=== PATIENT | male | born 1965 | race Caucasian/White ===

== ENCOUNTER 2017-01-13 23:57 | Emergency (ER) | payer OTHER ==
[2017-01-14] MEDS ORDERED: Rocephin 1000 MG INJ IM ONE (00:30)
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
[2017-01-14] MEDS ORDERED: Rocephin 1000 MG INJ ONE (00:40)
[2017-01-14] MEDS ORDERED: NORCO 5/325 MG PO ONE (02:07)
[2017-01-14] MEDS ORDERED: NORCO 5/325 MG ONE (02:11)
[2017-01-14 02:19] VITALS: BP 168/106; PULSE 96; O2SAT 100
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
== END 2017-01-14 02:19 | disposition home or self-care (01) ==
LOC: ED 23:57
DX: S00.83XA Contusion of other part of head, initial encounter (principal); K04.7 Periapical abscess without sinus; W50.0XXA Accidental hit or strike by another person, initial encounter
CPT/HCPCS: 70450; 70486; 72125; 96372; 99284; J0696; A9270-GY

== ENCOUNTER 2018-06-09 15:42 | Emergency (ER) | payer OTHER | END 2018-06-09 17:08 | disposition left against medical advice (07) | LOC: ED 15:42 | DX: Z53.9 Procedure and treatment not carried out, unspecified reason (principal) | CPT/HCPCS: 99281 ==

== ENCOUNTER 2019-11-12 16:23 | Emergency (ER) | payer OTHER ==
--- NOTE | 2019-11-12 16:28 | ERPHSYRPT ---
- History of Present Illness Time Seen by Provider: 11/12/19 16:27 Source: patient, family Exam Limitations: no limitations Physician History: This is a 53-year-old white male who is [facility] and presents with headache and abdominal pain. Patient has a history of hypertension and irritable bowel syndrome. Patient states that he uses methamphetamines and marijuana. The last time he used methamphetamines was 2 days ago. He also admits to using "fake" marijuana. patient denies any other illicit drug use. Patient has not taking any of his medications in the past 4 years. Patient was seen by EMS earlier today and signed a signature of release. He did not want to be brought to the emergency department at that time. His family talked him into coming into the emergency department to be evaluated. Patient denies any head injury. Patient denies vomiting or diarrhea. Timing/Duration: today Associated Symptoms: abdominal pain, headaches Allergies/Adverse Reactions: No Known Drug Allergies Allergy (Verified 11/12/19 16:30) Home Medications: No Home Meds [No Home Meds] 1 [facility] 09/05/14 [History] Hx Tetanus, Diphtheria Vaccination/Date Given: Yes (2006) Travel Risk - International Travel Have you traveled outside of the country in past 3 weeks: No - Coronavirus Screening Are you exhibiting any of the following symptoms?: No Close contact with a COVID-19 positive Pt in past 14-21 Days: No - Review of Systems Constitutional: No Symptoms Eyes: No Symptoms Ears, Nose, & Throat: No Symptoms Respiratory: No Symptoms Cardiac: No Symptoms Abdominal/Gastrointestinal: Abdominal Pain (Generalized), Nausea, No Vomiting, No Diarrhea Genitourinary Symptoms: No Symptoms Musculoskeletal: No Symptoms Skin: No Symptoms Neurological: Headache Psychological: No Symptoms Endocrine: No Symptoms Hematologic/Lymphatic: No Symptoms Immunological/Allergic: No Symptoms All Other Systems: Reviewed and Negative - Past Medical History Pertinent Past Medical History: Yes Neurological History: No Pertinent History ENT History: No Pertinent History Cardiac History: Hypertension, Other Respiratory History: No Pertinent History Endocrine Medical History: No Pertinent History Musculoskeletal History: No Pertinent History GI Medical History: Irritable Bowel History: No Pertinent History Psycho-Social History: No Pertinent History Male Reproductive Disorders: No Pertinent History Other Medical History: MVP - Past Surgical History Past Surgical History: Yes Neuro Surgical History: No Pertinent History Cardiac: No Pertinent History Respiratory: No Pertinent History Gastrointestinal: No Pertinent History Musculoskeletal: Orthopedic Surgery Male Surgical History: No Pertinent History Other Surgical History: LEFT WRIST SURGERY - Social History Smoking Status: Current every day smoker Exposure to second hand smoke: No Drug Use: none Patient Lives Alone: No - Nursing Vital Signs Nursing Vital Signs: Initial Vital Signs Temperature 98.3 F 11/12/19 16:32 Pulse Rate 96 H 11/12/19 16:32 Respiratory Rate 14 11/12/19 16:32 Blood Pressure 216/137 11/12/19 16:32 O2 Sat by Pulse Oximetry 100 11/12/19 16:32 Pain Scale Pain Intensity 0 - Physical Exam General Appearance: mild distress, alert, anxiety Eye Exam: PERRL/EOMI, eyes nml inspection Ears, Nose, Throat Exam: normal ENT inspection, moist mucous membranes Neck Exam: normal inspection, non-tender, supple, full range of motion Respiratory Exam: normal breath sounds, lungs clear, airway intact, No chest tenderness, No respiratory distress Cardiovascular Exam: regular rate/rhythm, normal heart sounds, normal peripheral pulses Extremity Exam: normal inspection, normal range of motion, pelvis stable Neurologic Exam: alert, oriented x 3, cooperative, systems lead II-XII nml as tested, normal mood/affect, nml cerebellar function, nml station & gait, sensation nml Skin Exam: normal color, warm, dry Lymphatic Exam: No adenopathy SpO2 Interpretation: normal - Course Nursing assessment & vital signs reviewed: Yes EKG Interpreted by Me: RATE (98), Sinus Rhythm, NORMAL AXIS, NORMAL INTERVALS, NORMAL QRS, Other (No acute ischemic changes. No comparison EKG) Ordered Tests: Active Orders 24 hr Category Date Time Status Cane Flume Watcher STAT Care 11/12/19 16:41 Active EKG-ER Only STAT Care 11/12/19 16:41 Active IV Insertion STAT Care 11/12/19 16:41 Active ABDOMEN AND PELVIS W/0 CONTRAS [CT] Stat Exams 11/12/19 17:01 Taken HEAD WITHOUT CONTRAST [CT] Stat Exams 11/12/19 17:09 Taken AMYLASE Stat Lab 11/12/19 Completed CBC W DIFF Stat Lab 11/12/19 Completed CK-Creatinine Phosphokinase Stat Lab 11/12/19 Completed CMP Stat Lab 11/12/19 Completed D-DIMER QUANTITATIVE Stat Lab 11/12/19 Completed LIPASE Stat Lab 11/12/19 Completed Lactic Acid Stat Lab 11/12/19 16:59 Completed TROPONIN Q3H Lab 11/12/19 Completed TROPONIN Q3H Lab 11/12/19 23:00 Ordered TROPONIN Q3H Lab 11/13/19 02:00 Ordered TROPONIN Q3H Lab 11/13/19 05:00 Ordered UA W/RFX UR CULTURE Stat Lab 11/12/19 18:30 Completed Urine Triage Profile Stat Lab 11/12/19 18:30 Completed Medication Summary Discontinued Medications Generic Name Dose Route Start Last Admin Trade Name Toni PRN Reason Stop Dose Admin Enalaprilat 1.25 mg 11/12/19 20:01 11/12/19 20:03 Vasotec I.V. 2.5 Mg IV 11/12/19 20:02 1.25 mg STAT ONE Administration Enalaprilat Confirm 11/12/19 20:02 Vasotec I.V. 2.5 Mg Administered 11/12/19 20:03 Dose 2.5 mg IV .STK-MED ONE Hydralazine HCl 10 mg 11/12/19 17:05 11/12/19 17:10 Apresoline 20 Mg/Ml Inj IV 11/12/19 17:06 10 mg STAT ONE Administration Hydralazine HCl Confirm 11/12/19 17:08 Apresoline 20 Mg/Ml Inj Administered 11/12/19 17:09 Dose 20 mg .ROUTE .STK-MED ONE Hydralazine HCl 10 mg 11/12/19 19:39 11/12/19 19:42 Apresoline 20 Mg/Ml Inj IV 11/12/19 19:40 10 mg STAT ONE Administration Hydralazine HCl Confirm 11/12/19 19:41 Apresoline 20 Mg/Ml Inj Administered 11/12/19 19:42 Dose 20 mg .ROUTE .STK-MED ONE Lorazepam 1 mg 11/12/19 17:04 11/12/19 17:10 Ativan 2 Mg/1 Ml Vial IV 11/12/19 17:05 1 mg STAT ONE Administration Lorazepam Confirm 11/12/19 17:08 Ativan 2 Mg/1 Ml Vial Administered 11/12/19 17:09 Dose 2 mg .ROUTE .STK-MED ONE Lab/Rad Data: Laboratory Result Diagrams 11/12/19 Unknown 11/12/19 Unknown Laboratory Results 11/12/19 11/12/19 11/12/19 Range/Units Unknown Unknown Unknown WBC (4.0-10.5) K/mm3 RBC (4.1-5.6) M/mm3 Hgb (12.5-18.0) gm/dl Hct (42-50) % MCV (78-100) fl MCH (26-32) pg MCHC (32-36) g/dl RDW (11.5-14.0) % Plt Count (150-450) K/mm3 MPV (7.5-11.0) fl Gran % (36.0-66.0) % Eos # (Auto) (0-0.5) Absolute Lymphs (auto) (1.0-4.6) Absolute Monos (auto) (0.0-1.3) Lymphocytes % (24.0-44.0) % Monocytes % (0.0-12.0) % Eosinophils % (0.00-5.0) % Basophils % (0.0-0.4) % Absolute Granulocytes (1.4-6.9) Basophils # (0-0.4) D-Dimer 245 (215-500) ng/mL Sodium 137 (137-145) mmol/L Potassium 3.8 (3.5-5.1) mmol/L Chloride 104 (98-107) mmol/L Carbon Dioxide 25 (22-30) mmol/L Anion Gap 12.8 (5-15) MEQ/L BUN 15 (9-20) mg/dL Creatinine 1.65 H (0.66-1.25) mg/dL Estimated GFR 46.6 ML/MIN Glucose 116 H (74-106) mg/dL Lactic Acid (0.4-2.0) Calcium 9.5 (8.4-10.2) mg/dL Total Bilirubin 0.50 (0.2-1.3) mg/dL AST 22 (17-59) U/L ALT 18 (0-50) U/L Alkaline Phosphatase 127 H (38-126) U/L Creatine Kinase 66 (55-170) U/L Troponin I < 0.012 (0.000-0.034) ng/mL Serum Total Protein 7.7 (6.3-8.2) g/dL Albumin 4.6 (3.5-5.0) g/dL Amylase 122 H (30-110) U/L Lipase 146 (23-300) U/L Urine Color (YELLOW) Urine Appearance (CLEAR) Urine pH (5-6) Ur Specific [place] (1.005-1.025) Urine Protein (Negative) Urine Ketones (NEGATIVE) Urine Blood (0-5) Gabriele/ul Urine Nitrite (NEGATIVE) Urine Bilirubin (NEGATIVE) Urine Urobilinogen (0-1) mg/dL Ur Leukocyte Esterase (NEGATIVE) Urine WBC (Auto) (0-5) /HPF Urine RBC (Auto) (0-2) /HPF U Epithel Cells (Auto) (FEW) /HPF Urine Bacteria (Auto) (NEGATIVE) /HPF Urine Culture Reflexed (NO) Urine Glucose (NEGATIVE) mg/dL Urine Opiates Level (NEGATIVE) Ur Methadone (NEGATIVE) Urine Barbiturates (NEGATIVE) Ur Phencyclidine (PCP) (NEGATIVE) Urine Amphetamine (NEGATIVE) U Benzodiazepine Level (NEGATIVE) Urine Cocaine (NEGATIVE) Urine Marijuana (THC) (NEGATIVE) 11/12/19 11/12/19 11/12/19 Range/Units Unknown 18:30 18:30 WBC 9.6 (4.0-10.5) K/mm3 RBC 5.36 (4.1-5.6) M/mm3 Hgb 15.9 (12.5-18.0) gm/dl Hct 47.3 (42-50) % MCV 88.2 (78-100) fl MCH 29.7 (26-32) pg MCHC 33.6 (32-36) g/dl RDW 13.7 (11.5-14.0) % Plt Count 320 (150-450) K/mm3 MPV 9.5 (7.5-11.0) fl Gran % 60.6 (36.0-66.0) % Eos # (Auto) 0.15 (0-0.5) Absolute Lymphs (auto) 2.86 (1.0-4.6) Absolute Monos (auto) 0.71 (0.0-1.3) Lymphocytes % 29.9 (24.0-44.0) % Monocytes % 7.4 (0.0-12.0) % Eosinophils % 1.6 (0.00-5.0) % Basophils % 0.5 (0.0-0.4) % Absolute Granulocytes 5.80 (1.4-6.9) Basophils # 0.05 (0-0.4) D-Dimer (215-500) ng/mL Sodium (137-145) mmol/L Potassium (3.5-5.1) mmol/L Chloride (98-107) mmol/L Carbon Dioxide (22-30) mmol/L Anion Gap (5-15) MEQ/L BUN (9-20) mg/dL Creatinine (0.66-1.25) mg/dL Estimated GFR ML/MIN Glucose (74-106) mg/dL Lactic Acid (0.4-2.0) Calcium (8.4-10.2) mg/dL Total Bilirubin (0.2-1.3) mg/dL AST (17-59) U/L ALT (0-50) U/L Alkaline Phosphatase (38-126) U/L Creatine Kinase (55-170) U/L Troponin I (0.000-0.034) ng/mL Serum Total Protein (6.3-8.2) g/dL Albumin (3.5-5.0) g/dL Amylase (30-110) U/L Lipase (23-300) U/L Urine Color STRAW (YELLOW) Urine Appearance CLEAR (CLEAR) Urine pH 6.0 (5-6) Ur Specific [place] 1.005 (1.005-1.025) Urine Protein NEGATIVE (Negative) Urine Ketones NEGATIVE (NEGATIVE) Urine Blood NEGATIVE (0-5) Gabriele/ul Urine Nitrite NEGATIVE (NEGATIVE) Urine Bilirubin NEGATIVE (NEGATIVE) Urine Urobilinogen NEGATIVE (0-1) mg/dL Ur Leukocyte Esterase NEGATIVE (NEGATIVE) Urine WBC (Auto) NONE (0-5) /HPF Urine RBC (Auto) NONE (0-2) /HPF U Epithel Cells (Auto) NONE (FEW) /HPF Urine Bacteria (Auto) NONE (NEGATIVE) /HPF Urine Culture Reflexed NO (NO) Urine Glucose NEGATIVE (NEGATIVE) mg/dL Urine Opiates Level NEGATIVE (NEGATIVE) Ur Methadone NEGATIVE (NEGATIVE) Urine Barbiturates NEGATIVE (NEGATIVE) Ur Phencyclidine (PCP) NEGATIVE (NEGATIVE) Urine Amphetamine POSITIVE (NEGATIVE) U Benzodiazepine Level NEGATIVE (NEGATIVE) Urine Cocaine NEGATIVE (NEGATIVE) Urine Marijuana (THC) POSITIVE (NEGATIVE) 11/12/19 Range/Units 16:59 WBC (4.0-10.5) K/mm3 RBC (4.1-5.6) M/mm3 Hgb (12.5-18.0) gm/dl Hct (42-50) % MCV (78-100) fl MCH (26-32) pg MCHC (32-36) g/dl RDW (11.5-14.0) % Plt Count (150-450) K/mm3 MPV (7.5-11.0) fl Gran % (36.0-66.0) % Eos # (Auto) (0-0.5) Absolute Lymphs (auto) (1.0-4.6) Absolute Monos (auto) (0.0-1.3) Lymphocytes % (24.0-44.0) % Monocytes % (0.0-12.0) % Eosinophils % (0.00-5.0) % Basophils % (0.0-0.4) % Absolute Granulocytes (1.4-6.9) Basophils # (0-0.4) D-Dimer (215-500) ng/mL Sodium (137-145) mmol/L Potassium (3.5-5.1) mmol/L Chloride (98-107) mmol/L Carbon Dioxide (22-30) mmol/L Anion Gap (5-15) MEQ/L BUN (9-20) mg/dL Creatinine (0.66-1.25) mg/dL Estimated GFR ML/MIN Glucose (74-106) mg/dL Lactic Acid 1.4 (0.4-2.0) Calcium (8.4-10.2) mg/dL Total Bilirubin (0.2-1.3) mg/dL AST (17-59) U/L ALT (0-50) U/L Alkaline Phosphatase (38-126) U/L Creatine Kinase (55-170) U/L Troponin I (0.000-0.034) ng/mL Serum Total Protein (6.3-8.2) g/dL Albumin (3.5-5.0) g/dL Amylase (30-110) U/L Lipase (23-300) U/L Urine Color (YELLOW) Urine Appearance (CLEAR) Urine pH (5-6) Ur Specific [place] (1.005-1.025) Urine Protein (Negative) Urine Ketones (NEGATIVE) Urine Blood (0-5) Gabriele/ul Urine Nitrite (NEGATIVE) Urine Bilirubin (NEGATIVE) Urine Urobilinogen (0-1) mg/dL Ur Leukocyte Esterase (NEGATIVE) Urine WBC (Auto) (0-5) /HPF Urine RBC (Auto) (0-2) /HPF U Epithel Cells (Auto) (FEW) /HPF Urine Bacteria (Auto) (NEGATIVE) /HPF Urine Culture Reflexed (NO) Urine Glucose (NEGATIVE) mg/dL Urine Opiates Level (NEGATIVE) Ur Methadone (NEGATIVE) Urine Barbiturates (NEGATIVE) Ur Phencyclidine (PCP) (NEGATIVE) Urine Amphetamine (NEGATIVE) U Benzodiazepine Level (NEGATIVE) Urine Cocaine (NEGATIVE) Urine Marijuana (THC) (NEGATIVE) - Progress Progress: improved, pain not gone completely, re-examined Progress Note: 11/12/19 19:38 CAT scan of the head reveals a normal head CT without any acute intracranial abnormalities. CAT scan of the abdomen pelvis reveals no acute intra-abdominal findings. There is an intermediate 9 mm right lower lobe lung nodule. The findings were discussed with the patient. He was instructed to follow-up with his primary care physician for further evaluation management of the lung nodule. 11/12/19 20:15 Medical decision making: This patient needs admission for hypertensive urgency. Patient also has methamphetamine abuse. Patient does not want to stay. He is going to sign an AMA form. I discussed with him in detail, as well as his daughter, the possibility of his symptoms worsening including causing a stroke or even . Patient states that he does not want to stay. I will discharge him to home with antihypertensive medication. Counseled pt/family regarding: lab results, diagnosis, need for follow-up, rad results - Departure Departure Disposition: AMA Clinical Impression: Hypertensive crisis Condition: Serious Critical Care Time: Yes Critical Care Time(excluding separately billable procedures): Critical 30-74 mins Referrals: DOCTOR,NO FAMILY [Primary Care Provider] - Additional Instructions: Return to the emergency department for worsening symptoms. Follow-up with your primary care for persistent symptoms. Take your medication as prescribed. Prescriptions: Hydrochlorothiazide 25 mg [hydroDIURIL 25 MG] 25 mg PO DAILY #10 tablet
[2019-11-12] MEDS ORDERED: APRESOLINE 20 MG/ML INJ ONE ×2 (17:08→19:41)
[2019-11-12] MEDS ORDERED: Ativan 2 MG/1 ML VIAL ONE (17:08)
[2019-11-12] MEDS: Ativan 2 MG/1 ML VIAL IV ONE (17:10)
[2019-11-12] MEDS: APRESOLINE 20 MG/ML INJ IV ONE ×2 (17:10→19:42)
[2019-11-12 17:14] LABS: BASOPHIL % 0.5 % (0.0-0.4); Basophil (Absolute #) 0.05 (0-0.4); Eosinophil % 1.6 % (0.00-5.0); Eosinophil (Absolute #) 0.15 (0-0.5); Hematocrit 47.3 % (42-50); Hemoglobin 15.9 gm/dl (12.5-18.0); Lymphocyte (Absolute #) 2.86 (1.0-4.6); Lymphocytes % 29.9 % (24.0-44.0); Mean Cell Volume 88.2 fl (78-100); Mean Corpuscular Hemoglobin 29.7 pg (26-32); Mean Corpuscular Hgb Concent. 33.6 g/dl (32-36); Mean Platelet Volume 9.5 fl (7.5-11.0); Monocyte (Absolute #) 0.71 (0.0-1.3); Monocytes % 7.4 % (0.0-12.0); Neutrophil % 60.6 % (36.0-66.0); Platelet Count 320 K/mm3 (150-450); Red Blood Count 5.36 M/mm3 (4.1-5.6); Red Cell Distribution Width 13.7 % (11.5-14.0); White Blood Count 9.6 K/mm3 (4.0-10.5)
[2019-11-12 17:29] LABS: ALBUMIN 4.6 g/dL (3.5-5.0); ANION GAP 12.8 MEQ/L (5-15); BILIRUBIN,TOTAL 0.5 mg/dL (0.2-1.3); Calcium 9.5 mg/dL (8.4-10.2); Creatinine 1 1.65 mg/dL (0.66-1.25); Potassium 3.8 mmol/L (3.5-5.1); Total Protein 7.7 g/dL (6.3-8.2)
[2019-11-12 18:52] LABS: Appearance CLEAR (CLEAR); Bilirubin NEGATIVE (NEGATIVE); Blood NEGATIVE Ery/ul (0-5); Glucose NEGATIVE (NEGATIVE); Ketones NEGATIVE (NEGATIVE); Leukocyte Esterase NEGATIVE (NEGATIVE); Nitrite NEGATIVE (NEGATIVE); Protein,Urine Dip NEGATIVE (Negative); Specific Gravity 1.005 (1.005-1.025); Urobilinogen NEGATIVE mg/dL (0-1)
[2019-11-12 19:15] VITALS: O2SAT 99
[2019-11-12 19:17] LABS: Barbiturate,Urine NEGATIVE (NEGATIVE); Benzodiazepine,Urine NEGATIVE (NEGATIVE); Cocaine,Urine NEGATIVE (NEGATIVE); Methadone,Urine NEGATIVE (NEGATIVE); Opiate,Urine NEGATIVE (NEGATIVE); PCP,Urine NEGATIVE (NEGATIVE); THC,Urine POSITIVE (NEGATIVE)
[2019-11-12 19:48] LABS: Amphetamine,Urine POSITIVE (NEGATIVE)
[2019-11-12] MEDS ORDERED: VASOTEC I.V. 2.5 MG IV ONE (20:02)
[2019-11-12 20:03] VITALS: BP 182/119; PULSE 92
[2019-11-12] MEDS: VASOTEC I.V. 2.5 MG IV ONE (20:03)
--- NOTE | 2019-11-13 08:41 | XRAY ---
Indication: Headache and dizziness. Multiple contiguous axial images obtained through the head without contrast. Comparison: January 14, 2017. Again normal appearing brain parenchyma, ventricles, and bony calvarium. Visualized paranasal sinuses and mastoid air cells are clear. Impression: Continued normal CT head without contrast exam.
--- NOTE | 2019-11-13 08:45 | XRAY ---
Indication: Abdomen pain. Multiple contiguous axial images obtained through the abdomen and pelvis without contrast as ordered. Comparison: None Lung bases demonstrates mild bibasilar dependent atelectasis and lingula subsegmental atelectasis/scarring. Right middle lobe demonstrates a indeterminant 9 mm noncalcified nodule. No infiltrate or effusion. Heart is not enlarged. Noncontrasted stomach and bowel loops appear nonobstructed. Descending duodenum demonstrates 2 cm diverticulum. Normal appendix. No free fluid/air. Remaining liver, gallbladder, pancreas, spleen, adrenal glands, kidneys, ureters, and bladder appear unremarkable for noncontrast exam. Minimal aortoiliac calcifications without AAA. Osseous structures demonstrates mild/moderate degenerative changes throughout the lumbar spine. Bilateral L4 spondylolysis with 12 mm spondylolisthesis. Impression: 1. Indeterminant 9 mm right middle lobe noncalcified nodule. Finding is new with respect to CT chest January 08, 2011. CT chest may yield further information. 2. Incidental duodenal diverticulum and L4 spondylolysis with grade [address] abdomen/pelvis without contrast exam is negative.
== END 2019-11-12 20:24 | disposition left against medical advice (07) ==
LOC: ED 16:23
DX: I16.9 Hypertensive crisis, unspecified (principal)
CPT/HCPCS: 36000; 36415; 70450; 74176; 80053; 80307; 81001; 82150; 82550; 83605; 83690; 84484; 85025; 85379; 93005; 93041; 96374; 96375; 96376; 99284; 99291; J0360; J2060

== ENCOUNTER 2021-03-18 19:14 | Emergency (ER) | payer SELFPAY | END 2021-03-18 19:15 | disposition left against medical advice (07) | LOC: ED 19:14 | DX: Z53.21 Procedure and treatment not carried out due to patient leaving prior to being seen by health care provider (principal) | CPT/HCPCS: 99282 ==

== ENCOUNTER 2022-08-09 20:57 | Emergency (ER) | payer OTHER ==
--- NOTE | 2022-08-09 21:05 | ERPHSYRPT ---
- History of Present Illness Time Seen by Provider: 08/09/22 21:05 Historian: patient Exam Limitations: no limitations Physician History: This is a 56-year-old white male patient who is also a [facility] has a history of hypertension on amlodipine and irritable bowel syndrome. Patient does smoke cigarettes and occasionally does smoke marijuana and presents with left anterior chest pain that began last evening and worsened today. It had been intermittent and today was more constant sharp pain that radiates to his left shoulder. He denies shortness of breath. He has not had a cough. He denies fevers. He has no abdominal pain. Patient has never seen a needle grinder. His systolic blood pressure on arrival to the emergency department was approximately 183 mmHg. Timing/Duration: yesterday, intermittent, worse Quality: sharpness Location: other (Left anterior chest) Chest Pain Radiation: arm Severity of Pain-Max: mild (Moderate) Severity of Pain-Current: mild (To moderate) Modifying Factors: Improves With: nothing Associated Symptoms: No shortness of breath, No cough Prior Chest Pain/Cardiac Workup: no prior chest pain, no prior cardiac workup Nitro Today/Relief: no nitro taken today Aspirin Treatment Today: provided at home (Patient states that he took 2 full Excedrin at home earlier today.) Allergies/Adverse Reactions: No Known Drug Allergies Allergy (Verified 08/09/22 21:21) Home Medications: Amlodipine Besylate [Norvasc] 10 mg PO DAILY 11/25/20 [History] Hx Tetanus, Diphtheria Vaccination/Date Given: Yes (2006) Hx Influenza Vaccination/Date Given: No Hx Pneumococcal Vaccination/Date Given: No Travel Risk - International Travel Have you traveled outside of the country in past 3 weeks: No - Coronavirus Screening Are you exhibiting any of the following symptoms?: No Close contact with a COVID-19 positive Pt in past 14-21 Days: No - Review of Systems Constitutional: No Symptoms Eyes: No Symptoms Ears, Nose, & Throat: No Symptoms Respiratory: No Symptoms Cardiac: Chest Pain Abdominal/Gastrointestinal: No Symptoms Genitourinary Symptoms: No Symptoms Musculoskeletal: No Symptoms Skin: No Symptoms Neurological: No Symptoms Psychological: No Symptoms Endocrine: No Symptoms - Past Medical History Pertinent Past Medical History: Yes Neurological History: No Pertinent History ENT History: No Pertinent History Cardiac History: Hypertension, Other Respiratory History: No Pertinent History Endocrine Medical History: No Pertinent History Musculoskeletal History: No Pertinent History GI Medical History: Irritable Bowel History: No Pertinent History Psycho-Social History: No Pertinent History Male Reproductive Disorders: No Pertinent History Other Medical History: MVP - Past Surgical History Past Surgical History: Yes Neuro Surgical History: No Pertinent History Cardiac: No Pertinent History Respiratory: No Pertinent History Gastrointestinal: No Pertinent History Genitourinary: No Pertinent History Musculoskeletal: Orthopedic Surgery Male Surgical History: No Pertinent History Other Surgical History: LEFT WRIST SURGERY - Social History Smoking Status: Current every day smoker How long have you smoked: 30 years Exposure to second hand smoke: Yes Drug Use: none Patient Lives Alone: No - Nursing Vital Signs Nursing Vital Signs: Initial Vital Signs Temperature 97.4 F 08/09/22 20:58 Pulse Rate 99 H 08/09/22 20:58 Respiratory Rate 16 08/09/22 20:58 Blood Pressure 176/129 08/09/22 20:58 O2 Sat by Pulse Oximetry 100 08/09/22 20:58 Pain Scale Pain Intensity 4 - Physical Exam General Appearance: no apparent distress, alert Eye Exam: PERRL/EOMI, eyes nml inspection Ears, Nose, Throat Exam: normal ENT inspection, moist mucous membranes Neck Exam: normal inspection, non-tender, supple, full range of motion Respiratory Exam: normal breath sounds, chest tenderness (Left chest), lungs clear, airway intact, No respiratory distress Cardiovascular Exam: regular rate/rhythm, normal heart sounds, normal peripheral pulses Gastrointestinal/Abdomen Exam: soft, normal bowel sounds, No tenderness Rectal Exam: not done Back Exam: normal inspection, normal range of motion, No CVA tenderness, No vertebral tenderness Extremity Exam: normal inspection, normal range of motion, pelvis stable Neurologic Exam: alert, oriented x 3, cooperative, fuel cell repairer II-XII nml as tested, normal mood/affect, nml cerebellar function, nml station & gait, sensation nml Skin Exam: normal color, warm, dry Lymphatic Exam: No adenopathy SpO2 Interpretation: normal O2 Delivery: Room Air - Course Nursing assessment & vital signs reviewed: Yes EKG Interpreted by Me: RATE (101), Sinus Tach, LAFB, prolonged QT interval, N ORMAL QRS, Other (No acute ischemic changes on today's twelve-lead EKG) Ordered Tests: Active Orders 24 hr Category Date Time Status Community Leader STAT Care 08/09/22 21:37 Active EKG-ER Only STAT Care 08/09/22 21:36 Active IV Insertion STAT Care 08/09/22 21:36 Active Pulse Oximetry (ED) STAT Care 08/09/22 21:36 Active CHEST 1 VIEW (PORTABLE) Stat Exams 08/09/22 21:36 Taken CBC Q48H Lab 08/10/22 06:00 Ordered CBC Q48H Lab 08/12/22 06:00 Ordered CBC Q48H Lab 08/14/22 06:00 Ordered CBC Q48H Lab 08/16/22 06:00 Ordered CBC Q48H Lab 08/18/22 06:00 Ordered CBC Q48H Lab 08/20/22 06:00 Ordered CBC Q48H Lab 08/22/22 06:00 Ordered CBC Stat Lab 08/09/22 23:23 Ordered CBC W DIFF Stat Lab 08/09/22 21:30 Completed CMP Stat Lab 08/09/22 21:30 Completed D-DIMER QUANTITATIVE Stat Lab 08/09/22 21:30 Completed PROTIME WITH INR Stat Lab 08/09/22 23:23 Ordered PTT Q4H Lab 08/09/22 23:30 Ordered PTT Q4H Lab 08/10/22 03:30 Ordered PTT Q4H Lab 08/10/22 07:30 Ordered PTT Q4H Lab 08/10/22 11:30 Ordered PTT Q4H Lab 08/10/22 15:30 Ordered PTT Q4H Lab 08/10/22 19:30 Ordered PTT Q4H Lab 08/10/22 23:30 Ordered PTT Q4H Lab 08/11/22 03:30 Ordered PTT Q4H Lab 08/11/22 07:30 Ordered PTT Q4H Lab 08/11/22 11:30 Ordered PTT Q4H Lab 08/11/22 15:30 Ordered PTT Q4H Lab 08/11/22 19:30 Ordered PTT Stat Lab 08/09/22 23:23 Ordered TROPONIN Q4H Lab 08/09/22 21:30 Completed TROPONIN Q4H Lab 08/10/22 01:45 Ordered TROPONIN Q4H Lab 08/10/22 05:45 Ordered Medication Summary Generic Name Dose Route Start Last Admin Trade Name Freq PRN Reason Stop Dose Admin Heparin Sodium/Dextrose 25,000 units in 250 mls @ 9.816 mls/hr 08/09/22 23:30 Heparin 25,000 Units/D5w: Use Order Set Adama IV 09/08/22 23:29 .Q24H VAMSHI Protocol 12 UNITS/KG/HR Discontinued Medications Generic Name Dose Route Start Last Admin Trade Name Toni PRN Reason Stop Dose Admin Heparin Sodium (Beef Lung) 5,000 unit 08/09/22 22:36 08/09/22 22:46 Heparin 5000 Units/0.5 Ml 5,000 Unit/0.5 Ml Syr IV 08/09/22 22:37 5,000 unit STAT ONE Administration Heparin Sodium (Beef Lung) Confirm 08/09/22 22:41 Heparin 5000 Units/0.5 Ml 5,000 Unit/0.5 Ml Syr Administered 08/09/22 22:42 Dose 5,000 unit .ROUTE .STK-MED ONE Sodium Chloride 1,000 mls @ 999 mls/hr 08/09/22 22:18 08/09/22 22:26 Sodium Chloride 0.9% 1000 Ml IV 08/09/22 23:18 999 mls/hr .Q1H1M STA Administration Sodium Chloride Confirm 08/09/22 22:23 Sodium Chloride 0.9% 1000 Ml Administered 08/09/22 22:24 Dose 1,000 mls @ ud .ROUTE .STK-MED ONE Labetalol HCl 10 mg 08/09/22 21:37 08/09/22 21:51 Labetalol Hcl 20 Mg/4 Ml Disp.Syringe IV 08/09/22 21:38 10 mg STAT ONE Administration Labetalol HCl Confirm 08/09/22 21:43 Labetalol Hcl 20 Mg/4 Ml Disp.Syringe Administered 08/09/22 21:44 Dose 20 mg IV .STK-MED ONE Metoprolol Tartrate 5 mg 08/09/22 23:17 Metoprolol Tartrate 5 Mg/5 Ml Vial IV 08/09/22 23:18 STAT ONE Morphine Sulfate 4 mg 08/09/22 21:36 08/09/22 21:48 Morphine Sulfate 4 Mg/Ml Injection IV 08/09/22 21:37 4 mg STAT ONE Administration Morphine Sulfate Confirm 08/09/22 21:43 Morphine Sulfate 4 Mg/Ml Injection Administered 08/09/22 21:44 Dose 4 mg .ROUTE .STK-MED ONE Morphine Sulfate 4 mg 08/09/22 23:16 Morphine Sulfate 4 Mg/Ml Injection IV 08/09/22 23:17 STAT ONE Nitroglycerin 1 gm 08/09/22 22:37 08/09/22 22:45 Nitroglycerin 1 Gm Packet TOP 08/09/22 22:38 1 gm STAT ONE Administration Nitroglycerin Confirm 08/09/22 22:41 Nitroglycerin 1 Gm Packet Administered 08/09/22 22:42 Dose 1 gm .ROUTE .STK-MED ONE Ondansetron HCl 4 mg 08/09/22 21:36 08/09/22 21:46 Ondansetron Hcl 4 Mg/2 Ml Vial IV 08/09/22 21:37 4 mg STAT ONE Administration Ondansetron HCl Confirm 08/09/22 21:42 Ondansetron Hcl 4 Mg/2 Ml Vial Administered 08/09/22 21:43 Dose 4 mg .ROUTE .STK-MED ONE Ondansetron HCl 4 mg 08/09/22 23:16 Ondansetron Hcl 4 Mg/2 Ml Vial IV 08/09/22 23:17 STAT ONE Lab/Rad Data: Laboratory Result Diagrams 08/09/22 21:30 08/09/22 21:30 Laboratory Results 08/09/22 08/09/22 08/09/22 Range/Units 21:30 21:30 21:30 WBC (4.0-10.5) x10^3/uL RBC (4.1-5.6) x10^6/uL Hgb (12.5-18.0) g/dL Hct (42-50) % MCV (78-100) fL MCH (26-32) pg MCHC (32-36) g/dL RDW (11.5-14.0) % Plt Count (150-450) x10^3/uL MPV (7.5-11.0) fL Gran % (36.0-66.0) % Immature Gran % (Auto) (0.00-0.4) % Nucleat RBC Rel Count (0.00-0.1) % Eos # (Auto) (0-0.5) x10^3/uL Immature Gran # (Auto) (0.00-0.03) x10^3u/L Absolute Lymphs (auto) (1.0-4.6) x10^3/uL Absolute Monos (auto) (0.0-1.3) x10^3/uL Absolute Nucleated RBC (0.00-0.01) x10^3u/L Lymphocytes % (24.0-44.0) % Monocytes % (0.0-12.0) % Eosinophils % (0.00-5.0) % Basophils % (0.0-0.4) % Absolute Granulocytes (1.4-6.9) x10^3/uL Basophils # (0-0.4) x10^3/uL D-Dimer 0.56 H (0.0-0.50) mg/L Sodium 138 (137-145) mmol/L Potassium 3.8 (3.5-5.1) mmol/L Chloride 99 (98-107) mmol/L Carbon Dioxide 28 (22-30) mmol/L Anion Gap 14.7 (5-15) MEQ/L BUN 20 (9-20) mg/dL Creatinine 1.68 H (0.66-1.25) mg/dL Estimated GFR 45.1 ML/MIN Glucose 122 H (74-106) mg/dL Calcium 9.3 (8.4-10.2) mg/dL Total Bilirubin 0.60 (0.2-1.3) mg/dL AST 145 H (17-59) U/L ALT 28 (0-50) U/L Alkaline Phosphatase 142 H (38-126) U/L Troponin I 12.700 H* (0.000-0.034) ng/mL Serum Total Protein 8.1 (6.3-8.2) g/dL Albumin 4.6 (3.5-5.0) g/dL 08/09/22 Range/Units 21:30 WBC 13.2 H (4.0-10.5) x10^3/uL RBC 6.04 H (4.1-5.6) x10^6/uL Hgb 18.0 (12.5-18.0) g/dL Hct 53.7 H (42-50) % MCV 88.9 (78-100) fL MCH 29.8 (26-32) pg MCHC 33.5 (32-36) g/dL RDW 13.8 (11.5-14.0) % Plt Count 318 (150-450) x10^3/uL MPV 9.5 (7.5-11.0) fL Gran % 72.5 H (36.0-66.0) % Immature Gran % (Auto) 0.4 (0.00-0.4) % Nucleat RBC Rel Count 0.0 (0.00-0.1) % Eos # (Auto) 0.12 (0-0.5) x10^3/uL Immature Gran # (Auto) 0.05 H (0.00-0.03) x10^3u/L Absolute Lymphs (auto) 2.35 (1.0-4.6) x10^3/uL Absolute Monos (auto) 1.02 (0.0-1.3) x10^3/uL Absolute Nucleated RBC 0.00 (0.00-0.01) x10^3u/L Lymphocytes % 17.9 L (24.0-44.0) % Monocytes % 7.8 (0.0-12.0) % Eosinophils % 0.9 (0.00-5.0) % Basophils % 0.5 (0.0-0.4) % Absolute Granulocytes 9.54 H (1.4-6.9) x10^3/uL Basophils # 0.07 (0-0.4) x10^3/uL D-Dimer (0.0-0.50) mg/L Sodium (137-145) mmol/L Potassium (3.5-5.1) mmol/L Chloride (98-107) mmol/L Carbon Dioxide (22-30) mmol/L Anion Gap (5-15) MEQ/L BUN (9-20) mg/dL Creatinine (0.66-1.25) mg/dL Estimated GFR ML/MIN Glucose (74-106) mg/dL Calcium (8.4-10.2) mg/dL Total Bilirubin (0.2-1.3) mg/dL AST (17-59) U/L ALT (0-50) U/L Alkaline Phosphatase (38-126) U/L Troponin I (0.000-0.034) ng/mL Serum Total Protein (6.3-8.2) g/dL Albumin (3.5-5.0) g/dL - Progress Progress: improved, re-examined Air Movement: good Progress Note: 08/09/22 22:18 Chest x-ray shows no acute cardiopulmonary process. This chest x-ray was interpreted by me 08/09/22 23:25 Seconds twelve-lead EKG was performed at 2246. Heart rate is 90 bpm and is normal sinus rhythm there is persistent left anterior fascicular block. There is persistent borderline prolonged QT interval. The computer readout shows borderline ST elevation in the lateral leads. However, I do not appreciate significant change in the lateral leads. This was interpreted by me. This patient's medical issue is 1 of high complexity. The level of complexity and the work-up performed is based on review of the patient's past medical history, review of the patient's drug allergies and review of the patient's medication list. In addition, history of present illness and physical findings on examination were taken in account. The work-up performed includes chest x- ray, intravenous line, low rate intravenous normal saline solution, twelve-lead EKG, CBC, CMP, D-dimer and troponin level. The results of the work-up were reviewed by me. The patient's D-dimer is slightly elevated at 0.56. He had a GFR of 45. We started low rate intravenous normal saline solution. The original plan was to repeat the BMP and then perform a CTA of the chest to evaluate for pulmonary embolus. However, the troponin level came back at over 12. Verification of this level was performed and the troponin level came back 12.7. Although the patient's left chest pain has resolved he has persistent left shoulder pain. We had originally called [facility] and they were unable to accept him for transfer. We then were given permission to transfer this patient to wherever necessary for continued management of his medical issue. We contacted [facility] and they are on diversion. We then contacted [facility] and the soonest they would be able to accept the patient is between 24 and 48 hours. Patient requires more urgent evaluation by needle grinder. We then contacted [facility] emergency department in [facility]. I reviewed the work-up results with Dr. Jane in the emergency room. He felt that the patient may have a STEMI rather than a non-STEMI. We then consulted and spoke with Dr. Pedersen who is the needle grinder on-call today at [facility] in [facility]. I reviewed with him the results of the work-up including the results that I interpreted the twelve-lead EKG. We will be sending this patient to [facility] emergency department. We put the patient on heparin followed by heparin drip, patient received labetalol 10 mg intravenously as well as Lopressor, morphine 4 mg x 2 doses and Zofran 4 mg intravenously x2 doses as well as 2 inches of Nitropaste. Blood Culture(s) Obtained: No Antibiotics given: No Counseled pt/family regarding: lab results, diagnosis, rad results Medical Desision Making - Independent Historian Additional History obtained from: Spouse - Discussion of managment Reviewed:: Test results, Need for additional workup Agreed on:: Treatment plan, decision to admit (At [facility] transferring) - Diagnostic Testing Diagnostic test were ordered, analyzed, and reviewed by me: Yes Radiological Interpretation: Interpreted by me - Risk of complications The pt has a high risk of morbidity or mortality based on: Decision regarding hospitilization or escalation of hosp level of care - Departure Departure Disposition: Transfer Clinical Impression: Non-STEMI (non-ST elevated myocardial infarction), Hypertension Condition: Fair Critical Care Time: Yes Critical Care Time(excluding separately billable procedures): Critical 30-74 mins (40 minutes) Referrals: DOCTOR,NO FAMILY [NON-STAFF PHY W/O PRIVILEGES] - Follow up/PCP as directed
[2022-08-09] MEDS ORDERED: Zofran 4 MG/2 ML VIAL IV ONE ×2 (21:36→23:16)
[2022-08-09] MEDS ORDERED: MORPHINE SULFATE 4 MG INJ IV ONE ×2 (21:36→23:16)
[2022-08-09] MEDS ORDERED: TRANDATE 20 MG/4 ML SYRINGE IV ONE ×2 (21:37→21:43)
[2022-08-09] MEDS ORDERED: Zofran 4 MG/2 ML VIAL ONE ×2 (21:42→23:27)
[2022-08-09] MEDS ORDERED: MORPHINE SULFATE 4 MG INJ ONE ×2 (21:43→23:27)
[2022-08-09 21:57] LABS: Absolute Neutrophil Ct (ANC) 9.54 x10^3/uL (1.4-6.9); BASOPHIL % 0.5 % (0.0-0.4); Basophil (Absolute #) 0.07 x10^3/uL (0-0.4); Eosinophil % 0.9 % (0.00-5.0); Eosinophil (Absolute #) 0.12 x10^3/uL (0-0.5); Hematocrit 53.7 % (42-50); IMMATURE GRAN # 0.05 x10^3u/L (0.00-0.03); IMMATURE GRAN % 0.4 % (0.00-0.4); Lymphocyte (Absolute #) 2.35 x10^3/uL (1.0-4.6); Lymphocytes % 17.9 % (24.0-44.0); Mean Cell Volume 88.9 fL (78-100); Mean Corpuscular Hemoglobin 29.8 pg (26-32); Mean Corpuscular Hgb Concent. 33.5 g/dL (32-36); Mean Platelet Volume 9.5 fL (7.5-11.0); Monocyte (Absolute #) 1.02 x10^3/uL (0.0-1.3); Monocytes % 7.8 % (0.0-12.0); Neutrophil % 72.5 % (36.0-66.0); Platelet Count 318 x10^3/uL (150-450); Red Blood Count 6.04 x10^6/uL (4.1-5.6); Red Cell Distribution Width 13.8 % (11.5-14.0); White Blood Count 13.2 x10^3/uL (4.0-10.5)
[2022-08-09 22:01] LABS: ALBUMIN 4.6 g/dL (3.5-5.0); ANION GAP 14.7 MEQ/L (5-15); BILIRUBIN,TOTAL 0.6 mg/dL (0.2-1.3); Calcium 9.3 mg/dL (8.4-10.2); Creatinine 1 1.68 mg/dL (0.66-1.25); EST GLOMERULAR FILTRATION RATE 45.1 ML/MIN; Potassium 3.8 mmol/L (3.5-5.1); Total Protein 8.1 g/dL (6.3-8.2)
[2022-08-09] MEDS ORDERED: Sodium Chloride 0.9% 1000 ML 1,000 ML IV STA (22:18)
[2022-08-09] MEDS ORDERED: Sodium Chloride 0.9% 1000 ML 1,000 ML ONE (22:23)
[2022-08-09] MEDS ORDERED: HEPARIN 5000 UNITS/0.5 ML (HIGH RISK MED) IV ONE (22:36)
[2022-08-09] MEDS ORDERED: NITRO-BID 2% UD PACKETS TOP ONE (22:37)
[2022-08-09] MEDS ORDERED: NITRO-BID 2% UD PACKETS ONE (22:41)
[2022-08-09] MEDS ORDERED: HEPARIN 5000 UNITS/0.5 ML (HIGH RISK MED) ONE (22:41)
[2022-08-09] MEDS ORDERED: LOPRESSOR INJECTION IV ONE ×2 (23:17→23:27)
[2022-08-09] MEDS ORDERED: Heparin 25,000 units/D5W: USE ORDER SET PROTO 25,000 UNITS/250 ML BAG IV ONE (23:25)
[2022-08-09] MEDS ORDERED: Heparin 25,000 units/D5W: USE ORDER SET PROTO 25,000 UNITS/250 ML BAG IV SCH (23:30)
[2022-08-09 23:38] VITALS: BP 168/121; PULSE 88; O2SAT 99
--- NOTE | 2022-08-10 08:51 | XRAY ---
Indication: Left chest pain. Comparison: January 08, 2011 Portable chest hyperinflated and is now clear. Heart not enlarged. Bony thorax intact. No new/acute findings.
== END 2022-08-09 23:49 | disposition short-term general hospital (02) ==
LOC: ED 20:57
DX: I21.4 Non-ST elevation (NSTEMI) myocardial infarction (principal); I10 Essential (primary) hypertension; R07.9 Chest pain, unspecified; Z79.899 Other long term (current) drug therapy; Z72.0 Tobacco use
CPT/HCPCS: 36000; 36415; 71045; 80053; 84484; 85025; 85379; 93005; 93041; 94760; 96374; 96375; 96376; 99285; 99291; J1644; J2270; J2405; A9270-GY

== ENCOUNTER 2023-09-12 20:47 | Emergency (ER) | payer OTHER ==
[2023-09-12 21:13] VITALS: TEMP 98; O2SAT 100
--- NOTE | 2023-09-12 21:24 | ERPHSYRPT ---
- History of Present Illness Time Seen by Provider: 09/12/23 21:10 Source: patient, family Exam Limitations: no limitations Patient Subjective Stated Complaint: pt states he was picking up his girlfriend off the floor. pt states he felt a pop in his chest and felt his stent move Triage Nursing Assessment: pt ambulated into the er; pt is axo x4; pt states 1/10 pain to left upper chest; clear heart tone; strong violet radial pulse; clear lung sounds in all lobes; skin PDW; no respiratory distress; hypertensive Physician History: This is a 57-year-old white male patient who sees a primary care provider and prism measurer out of [facility] in [place] and presents with chest wall pain after picking up his girlfriend earlier. He felt a pop sensation in the left anterior chest wall region. He is concerned that the "cardiac stent has moved". Patient states he has felt off ever since then. However, he also admits to using methamphetamines earlier. Patient has a history of hypertension. He does not recall the name of this medication. He also has a history of mitral valve prolapse. Patient continues to be a daily smoker of cigarettes. He does not have shortness of breath. He denies abdominal pain. Timing/Duration: today Severity: mild Associated Symptoms: chest pain (Left anterior chest wall pain), No nausea, No vomiting, No abdominal pain, No shortness of breath Allergies/Adverse Reactions: No Known Drug Allergies Allergy (Verified 08/09/22 21:21) Home Medications: Amlodipine Besylate [Norvasc] 10 mg PO DAILY 11/25/20 [History] Hx Tetanus, Diphtheria Vaccination/Date Given: No Hx Influenza Vaccination/Date Given: No Hx Pneumococcal Vaccination/Date Given: Yes Immunizations Up to Date: No Travel Risk - International Travel Have you traveled outside of the country in past 3 weeks: No - Emerging Infectious Disease Are you exhibiting symptoms associated with any current EIDs: No - Review of Systems Constitutional: No Symptoms Eyes: No Symptoms Ears, Nose, & Throat: No Symptoms Respiratory: No Symptoms Cardiac: No Symptoms Abdominal/Gastrointestinal: No Symptoms Genitourinary Symptoms: No Symptoms Musculoskeletal: Other (This fall pain) Skin: No Symptoms Neurological: No Symptoms Psychological: No Symptoms Endocrine: No Symptoms Hematologic/Lymphatic: No Symptoms Immunological/Allergic: No Symptoms All Other Systems: Reviewed and Negative - Past Medical History Pertinent Past Medical History: Yes Neurological History: No Pertinent History ENT History: No Pertinent History Cardiac History: Arrhythmia, Hypertension, Other Respiratory History: No Pertinent History Endocrine Medical History: No Pertinent History Musculoskeletal History: Degenerative Disk Disease GI Medical History: Irritable Bowel History: No Pertinent History Psycho-Social History: No Pertinent History Male Reproductive Disorders: No Pertinent History Other Medical History: MVP - Past Surgical History Past Surgical History: Yes Neuro Surgical History: No Pertinent History Cardiac: Cardiac Catheterization, Cardiac Stent Respiratory: No Pertinent History Gastrointestinal: No Pertinent History Genitourinary: No Pertinent History Musculoskeletal: Orthopedic Surgery Male Surgical History: No Pertinent History Other Surgical History: LEFT WRIST SURGERY - Social History Smoking Status: Current every day smoker How long have you smoked: 30 years Exposure to second hand smoke: Yes Drug Use: marijuana, methamphetamines Patient Lives Alone: No - Nursing Vital Signs Nursing Vital Signs: Initial Vital Signs Temperature 98 F 09/12/23 21:03 Pulse Rate 90 09/12/23 21:03 Respiratory Rate 12 09/12/23 21:03 Blood Pressure 170/117 09/12/23 21:03 O2 Sat by Pulse Oximetry 100 09/12/23 21:03 Pain Scale Pain Intensity [Left Upper 1 Chest] Pain Intensity 1 - Physical Exam General Appearance: no apparent distress, alert, anxiety Eye Exam: PERRL/EOMI, eyes nml inspection Ears, Nose, Throat Exam: normal ENT inspection, moist mucous membranes Neck Exam: normal inspection, non-tender, supple, full range of motion Respiratory Exam: normal breath sounds, chest tenderness (Left anterior chest wall pain), lungs clear, airway intact, No respiratory distress Cardiovascular Exam: regular rate/rhythm, normal heart sounds, normal peripheral pulses Gastrointestinal/Abdomen Exam: soft, normal bowel sounds, No tenderness Rectal Exam: not done Back Exam: normal inspection, normal range of motion, No CVA tenderness, No vertebral tenderness Extremity Exam: normal inspection, normal range of motion, pelvis stable Neurologic Exam: alert, oriented x 3, cooperative, flight control specialist II-XII nml as tested, nml cerebellar function, nml station & gait, sensation nml Skin Exam: normal color, warm, dry Lymphatic Exam: adenopathy SpO2 Interpretation: normal SpO2: 100 O2 Delivery: Room Air - Course Nursing assessment & vital signs reviewed: Yes EKG Interpreted by Me: RATE, Sinus Rhythm (91), NORMAL AXIS, NORMAL INTERVALS, N ORMAL QRS, NORMAL ST-T, Other (No acute ischemic changes on today's twelve-lead EKG. Today's twelve-lead EKG has improved over the EKG dated 08/09/2022. There is resolution of borderline prolonged QT interval. The remainder of the EKG remained the same.) Ordered Tests: Active Orders 24 hr Category Date Time Status Site Leasing Agent STAT Care 09/12/23 21:17 Active EKG-ER Only STAT Care 09/12/23 21:17 Active IV Insertion STAT Care 09/12/23 21:17 Active CHEST 1 VIEW (PORTABLE) Stat Exams 09/12/23 21:39 Taken CBC W DIFF Stat Lab 09/12/23 21:25 Completed CMP Stat Lab 09/12/23 21:25 Completed MAGNESIUM Stat Lab 09/12/23 21:25 Completed TROPONIN Q4H Lab 09/12/23 21:25 Completed TROPONIN Q4H Lab 09/13/23 01:30 Ordered TROPONIN Q4H Lab 09/13/23 05:30 Ordered Lab/Rad Data: Laboratory Result Diagrams 09/12/23 21:25 09/12/23 21:25 Laboratory Results 09/12/23 09/12/23 09/12/23 Range/Units 21:25 21:25 21:25 WBC 7.3 (4.0-10.5) x10^3/uL RBC 5.33 (4.1-5.6) x10^6/uL Hgb 16.2 (12.5-18.0) g/dL Hct 48.3 (42-50) % MCV 90.6 (78-100) fL MCH 30.4 (26-32) pg MCHC 33.5 (32-36) g/dL RDW 13.3 (11.5-14.0) % Plt Count 278 (150-450) x10^3/uL MPV 8.7 (7.5-11.0) fL Gran % 58.6 (36.0-66.0) % Immature Gran % (Auto) 0.1 (0.00-0.4) % Nucleat RBC Rel Count 0.0 (0.00-0.1) % Eos # (Auto) 0.13 (0-0.5) x10^3/uL Immature Gran # (Auto) 0.01 (0.00-0.03) x10^3u/L Absolute Lymphs (auto) 2.20 (1.0-4.6) x10^3/uL Absolute Monos (auto) 0.63 (0.0-1.3) x10^3/uL Absolute Nucleated RBC 0.00 (0.00-0.01) x10^3u/L Lymphocytes % 30.1 (24.0-44.0) % Monocytes % 8.6 (0.0-12.0) % Eosinophils % 1.8 (0.00-5.0) % Basophils % 0.8 (0.0-0.4) % Absolute Granulocytes 4.28 (1.4-6.9) x10^3/uL Basophils # 0.06 (0-0.4) x10^3/uL Sodium 138 (135-145) mmol/L Potassium 4.8 (3.5-5.1) mmol/L Chloride 107 (98-107) mmol/L Carbon Dioxide 24 (22-30) mmol/L Anion Gap 12.3 (5-15) MEQ/L BUN 17 (9-20) mg/dL Creatinine 1.83 H (0.66-1.25) mg/dL Estimated GFR 42.5 ML/MIN Glucose 98 (74-106) mg/dL Calcium 9.3 (8.4-10.2) mg/dL Magnesium 2.1 (1.6-2.3) mg/dL Total Bilirubin 0.50 (0.2-1.3) mg/dL AST 18 (17-59) U/L ALT 12 (0-50) U/L Alkaline Phosphatase 88 (38-126) U/L Troponin I < 0.012 (0.000-0.033) ng/mL Serum Total Protein 7.0 (6.3-8.2) g/dL Albumin 4.0 (3.5-5.0) g/dL - Progress Progress: improved, re-examined Progress Note: 09/12/23 21:25 My medical decision making and the assignment of moderate complexity to this patient's medical issue today is based on review of the patient's past medical history, review of the patient's medication list, review patient drug allergy list, history present illness and physical findings on examination. The workup in this patient includes placement of intravenous line, CBC, CMP, twelve-lead EKG, troponin level, chest x-ray. Differential diagnosis includes hypertension, chest wall pain, myocardial infarction, electrolyte abnormalities, arrhythmia. 09/12/23 22:26 I interpreted the patient's laboratory data results. There is no evidence of any acute cardiopulmonary process based on the laboratory data results. His twelve-lead EKG is improved over that twelve-lead EKG dated 08/09/2022. I provided the preliminary interpretation of the chest x-ray. There is no evidence of any acute cardiopulmonary process on today's chest x-ray. Counseled pt/family regarding: lab results, diagnosis, need for follow-up, rad results Medical Desision Making - Independent Historian Additional History obtained from: Family - Diagnostic Testing Diagnostic test were ordered, analyzed, and reviewed by me: Yes Radiological Interpretation: Interpreted by me - Risk of complications Minimal Risk: Minimal risk of morbidity - Departure Departure Disposition: Home Clinical Impression: Chest wall pain Condition: Stable Critical Care Time: No Referrals: HOSPITAL,'S [Primary Care Provider] - Follow up/PCP as directed Additional Instructions: Continue your medications as prescribed. Call your prism measurer tomorrow, 09/13/2023 to make arrangements for follow-up appointment to be seen for further evaluation management in the next 5 days.
[2023-09-12 21:31] LABS: Absolute Neutrophil Ct (ANC) 4.28 x10^3/uL (1.4-6.9); BASOPHIL % 0.8 % (0.0-0.4); Basophil (Absolute #) 0.06 x10^3/uL (0-0.4); Eosinophil % 1.8 % (0.00-5.0); Eosinophil (Absolute #) 0.13 x10^3/uL (0-0.5); Hematocrit 48.3 % (42-50); Hemoglobin 16.2 g/dL (12.5-18.0); IMMATURE GRAN # 0.01 x10^3u/L (0.00-0.03); IMMATURE GRAN % 0.1 % (0.00-0.4); Lymphocytes % 30.1 % (24.0-44.0); Mean Cell Volume 90.6 fL (78-100); Mean Corpuscular Hemoglobin 30.4 pg (26-32); Mean Corpuscular Hgb Concent. 33.5 g/dL (32-36); Mean Platelet Volume 8.7 fL (7.5-11.0); Monocyte (Absolute #) 0.63 x10^3/uL (0.0-1.3); Monocytes % 8.6 % (0.0-12.0); Neutrophil % 58.6 % (36.0-66.0); Platelet Count 278 x10^3/uL (150-450); Red Blood Count 5.33 x10^6/uL (4.1-5.6); Red Cell Distribution Width 13.3 % (11.5-14.0); White Blood Count 7.3 x10^3/uL (4.0-10.5)
[2023-09-12 21:46] LABS: ANION GAP 12.3 MEQ/L (5-15); BILIRUBIN,TOTAL 0.5 mg/dL (0.2-1.3); Calcium 9.3 mg/dL (8.4-10.2); Creatinine 1 1.83 mg/dL (0.66-1.25); EST GLOMERULAR FILTRATION RATE 42.5 ML/MIN; MAGNESIUM 2.1 mg/dL (1.6-2.3); Potassium 4.8 mmol/L (3.5-5.1)
[2023-09-12] MEDS ORDERED: LOPRESSOR INJECTION IV ONE (22:48)
[2023-09-12] MEDS: LOPRESSOR INJECTION IV ONE (22:48)
[2023-09-12 23:11] VITALS: BP 153/108; PULSE 81; RESP 10
--- NOTE | 2023-09-13 08:40 | XRAY ---
Indication: Left chest pain. Comparison: August 09, 2022 Portable chest remains hyperinflated and clear. Heart not enlarged. Bony thorax intact. No new/acute findings.
== END 2023-09-12 23:15 | disposition home or self-care (01) ==
LOC: ED 20:47
DX: R07.89 Other chest pain (principal); I10 Essential (primary) hypertension; Z79.899 Other long term (current) drug therapy; Z72.0 Tobacco use
CPT/HCPCS: 36000; 36415; 71045; 80053; 83735; 84484; 85025; 93005; 93041; 96374; 99284

== ENCOUNTER 2023-12-29 20:35 | Observation (INO) | payer OTHER ==
--- NOTE | 2023-12-29 21:44 | ERPHSYRPT ---
- History of Present Illness Time Seen by Provider: 12/29/23 20:40 Historian: patient Exam Limitations: no limitations Patient Subjective Stated Complaint: c/o of rectal bleeding Triage Nursing Assessment: Pt brought to ED by ex with c/o of rectal bleeding. States that he started experiencing abdominal pain in his right lower quad around 1700 today and noticed the bleeding around 1730. Last BM today, bright red blood in stool, c/o nausea and diarrhea, denies vomiting, rates pain 4/10, vitals wnl, skin w/n/d, gait steady, pt doesn't appear to be in any distress at this time. Physician History: 58 years old male with history of coronary artery disease status post stenting presented in the ER with complaint of sudden onset right-sided abdominal pain around 5 PM and later on had loose stool with bright red blood 3-4 times until prior to arrival. Small in amount. Denies passing any clots. Reports cramping lower abdomen in the right side. Not taking any blood thinner. Reports associated nausea but no vomiting. Denies any history of hemorrhoids. Denies feeling dizzy lightheaded, chest pain palpitations or shortness of breath. No history of GI bleed in the past. Allergies/Adverse Reactions: No Known Drug Allergies Allergy (Verified 12/29/23 21:27) Home Medications: Aspirin [Adult Aspirin Regimen] 81 mg PO DAILY 12/29/23 [History] Clopidogrel Bisulfate [Plavix] 75 mg PO DAILY 12/29/23 [History] Losartan Potassium [Cozaar] 100 mg PO DAILY 12/29/23 [History] Hx Tetanus, Diphtheria Vaccination/Date Given: No Hx Influenza Vaccination/Date Given: No Hx Pneumococcal Vaccination/Date Given: No Travel Risk - International Travel Have you traveled outside of the country in past 3 weeks: No - Emerging Infectious Disease Are you exhibiting symptoms associated with any current EIDs: Yes Symptoms: Abdominal Pain, Diarrhea - Review of Systems Constitutional: No Symptoms Eyes: No Symptoms Ears, Nose, & Throat: No Symptoms Respiratory: No Symptoms Cardiac: No Symptoms Abdominal/Gastrointestinal: Abdominal Pain, Nausea, Diarrhea, Hematochezia Genitourinary Symptoms: No Symptoms Musculoskeletal: No Symptoms Skin: No Symptoms Neurological: No Symptoms Endocrine: No Symptoms Hematologic/Lymphatic: No Symptoms - Past Medical History Pertinent Past Medical History: Yes Neurological History: No Pertinent History ENT History: No Pertinent History Cardiac History: Arrhythmia, Hypertension, Other Respiratory History: No Pertinent History Endocrine Medical History: No Pertinent History Musculoskeletal History: Degenerative Disk Disease GI Medical History: Irritable Bowel History: No Pertinent History Psycho-Social History: No Pertinent History Male Reproductive Disorders: No Pertinent History Other Medical History: MVP, Nodule on lung - Past Surgical History Past Surgical History: Yes Neuro Surgical History: No Pertinent History Cardiac: Cardiac Catheterization, Cardiac Stent Respiratory: No Pertinent History Gastrointestinal: No Pertinent History Genitourinary: No Pertinent History Musculoskeletal: Orthopedic Surgery Male Surgical History: No Pertinent History Other Surgical History: LEFT WRIST SURGERY - Social History Smoking Status: Current every day smoker How long have you smoked: 30 years Exposure to second hand smoke: Yes Drug Use: marijuana, methamphetamines Patient Lives Alone: No - Social Determinants of Health Will the patient participate in the screening: Yes Do you worry about a steady place to live?: No Do you have any problems with any of the following?: No known problems In the past 12 months,have you had to go without utilities?: No Transportation Issues: No Has anyone in your support network made you feel unsafe?: No Have you or anyone in your house had to go without enough: No - Nursing Vital Signs Nursing Vital Signs: Initial Vital Signs Temperature 97.3 F 12/29/23 21:09 Pulse Rate 87 12/29/23 21:09 Respiratory Rate 16 12/29/23 21:09 Blood Pressure 138/84 12/29/23 21:09 O2 Sat by Pulse Oximetry 100 12/29/23 21:09 Pain Scale Pain Intensity 4 - Physical Exam General Appearance: no apparent distress, alert Eye Exam: PERRL/EOMI Ears, Nose, Throat Exam: normal ENT inspection Neck Exam: normal inspection, non-tender, supple, full range of motion Respiratory Exam: normal breath sounds, lungs clear Cardiovascular Exam: regular rate/rhythm, normal heart sounds Gastrointestinal/Abdomen Exam: soft, normal bowel sounds, tenderness (Mild tenderness right side to deep palpation), No distention, No guarding Rectal Exam: No hemorrhoids Back Exam: normal inspection Extremity Exam: normal inspection, normal range of motion Neurologic Exam: alert, oriented x 3, cooperative Skin Exam: normal color SpO2 Interpretation: normal SpO2: 100 O2 Delivery: Room Air - Course EKG Interpreted by Me: RATE (82), Sinus Rhythm, NORMAL AXIS, prolonged QT interval, Non-specific ST Changes Ordered Tests: Active Orders 24 hr Category Date Time Status Drawer Maker STAT Care 12/29/23 22:59 Active EKG-ER Only STAT Care 12/29/23 22:59 Active IV Insertion STAT Care 12/29/23 21:39 Active NPO (ED) STAT Care 12/29/23 21:39 Active ABDOMEN AND PELVIS W/0 CONTRAS [CT] Stat Exams 12/29/23 22:52 Completed CBC W DIFF Stat Lab 12/29/23 21:50 Completed CMP Stat Lab 12/29/23 21:50 Completed LIPASE Stat Lab 12/29/23 21:50 Completed Lactic Acid Stat Lab 12/29/23 21:55 Completed Occult Blood-Fecal Screen (Diagnostic) [OB-FECAL SCREEN Lab 12/29/23 22:48 Completed ] Stat UA W/RFX UR CULTURE Stat Lab 12/29/23 22:48 Completed Medication Summary Generic Name Dose Route Start Last Admin Trade Name Freq PRN Reason Stop Dose Admin Sodium Chloride 1,000 mls @ 125 mls/hr 12/29/23 23:00 12/29/23 23:26 Sodium Chloride 0.9% 1000 Ml IV 12/30/23 06:59 125 mls/hr .Q8H STA Administration Discontinued Medications Generic Name Dose Route Start Last Admin Trade Name Freq PRN Reason Stop Dose Admin Dextrose 50 ml 12/29/23 22:59 12/29/23 23:14 Dextrose 50%-Water 50 Ml Abboject IV 12/29/23 23:00 50 ml STAT ONE Administration Dextrose Confirm 12/29/23 23:06 Dextrose 50%-Water 50 Ml Abboject Administered 12/29/23 23:07 Dose 50 ml IV .STK-MED ONE Sodium Chloride 1,000 mls @ 999 mls/hr 12/29/23 21:39 12/29/23 23:31 Sodium Chloride 0.9% 1000 Ml IV 12/29/23 22:39 Infused .Q1H1M STA Infusion Sodium Chloride Confirm 12/29/23 21:46 Sodium Chloride 0.9% 1000 Ml Administered 12/29/23 21:47 Dose 1,000 mls @ ud .ROUTE .STK-MED ONE Sodium Chloride Confirm 12/29/23 23:20 Sodium Chloride 0.9% 1000 Ml Administered 12/29/23 23:21 Dose 1,000 mls @ ud .ROUTE .STK-MED ONE Insulin Human Regular 10 unit 12/29/23 22:59 12/29/23 23:14 Insulin Regular, Human 1 Unit IV 12/29/23 23:00 10 unit STAT ONE Administration Insulin Human Regular Confirm 12/29/23 23:06 Insulin Regular, Human 1 Unit Administered 12/29/23 23:07 Dose 10 unit .ROUTE .STK-MED ONE Patiromer 8.4 gm 12/29/23 22:59 12/29/23 23:15 Patiromer Calcium Sorbitex 8.4 Gm Powd.Pack PO 12/29/23 23:00 8.4 gm STAT STA Administration Patiromer Confirm 12/29/23 23:07 Patiromer Calcium Sorbitex 8.4 Gm Powd.Pack Administered 12/29/23 23:08 Dose 8.4 gm PO .STK-MED ONE Sodium Bicarbonate 50 meq 12/29/23 22:59 12/29/23 23:15 Sodium Bicarbonate 1 Meq/Ml 50ml Syringe IV 12/29/23 23:00 50 meq STAT ONE Administration Sodium Bicarbonate Confirm 12/29/23 23:07 Sodium Bicarbonate 1 Meq/Ml 50ml Syringe Administered 12/29/23 23:08 Dose 50 meq IV .STK-MED ONE Lab/Rad Data: Laboratory Result Diagrams 12/29/23 21:50 12/29/23 21:50 Laboratory Results 12/29/23 12/29/23 12/29/23 Range/Units 22:48 22:48 21:55 WBC (4.23-9.07) x10^3/uL RBC (4.63-6.08) x10^6/uL Hgb (13.7-17.5) g/dL Hct (40.1-51.0) % MCV (79.0-92.2) fL MCH (25.7-32.2) pg MCHC (32.3-36.5) g/dL RDW (11.6-14.4) % Plt Count (163-337) x10^3/uL MPV (9.4-12.4) fL Gran % (34.0-67.9) % Immature Gran % (Auto) (0.001-0.429) % Nucleat RBC Rel Count (0.00-0.2) % Eos # (Auto) (0.04-0.54) x10^3/uL Immature Gran # (Auto) (0.001-0.031) x10^3u/L Absolute Lymphs (auto) (1.32-3.57) x10^3/uL Absolute Monos (auto) (0.30-0.82) x10^3/uL Absolute Nucleated RBC (0.00-0.012) x10^3u/L Lymphocytes % (21.8-53.1) % Monocytes % (5.3-12.2) % Eosinophils % (0.8-7.0) % Basophils % (0.2-1.2) % Absolute Granulocytes (1.78-5.38) x10^3/uL Basophils # (0.01-0.08) x10^3/uL Sodium (135-145) mmol/L Potassium (3.5-5.1) mmol/L Chloride (98-107) mmol/L Carbon Dioxide (22-30) mmol/L Anion Gap (5-15) MEQ/L BUN (9-20) mg/dL Creatinine (0.66-1.25) mg/dL Estimated GFR ML/MIN Glucose (74-106) mg/dL Lactic Acid 2.4 H (0.4-2.0) Calcium (8.4-10.2) mg/dL Total Bilirubin (0.2-1.3) mg/dL AST (17-59) U/L ALT (0-50) U/L Alkaline Phosphatase (38-126) U/L Serum Total Protein (6.3-8.2) g/dL Albumin (3.5-5.0) g/dL Lipase (23-300) U/L Urine Color Dark Yellow (Yellow) Urine Appearance Cloudy A (Clear) Urine pH 5.0 (4.6-8.0) Ur Specific [place] 1.020 (1.005-1.030) Urine Protein 100 A (Negative) Urine Glucose (UA) Negative (Negative) mg/dL Urine Ketones Trace A (Negative) Urine Blood Negative (Negative) Urine Nitrite Negative (Negative) Urine Bilirubin Negative (Negative) Urine Urobilinogen 1.0 A (0.2) mg/dL Ur Leukocyte Esterase Trace A (Negative) U Hyaline Cast (Auto) 20-50 (0-2) /LPF Urine Microscopic RBC 0-2 (0-5) /HPF Urine Microscopic WBC 3-5 (0-5) /HPF Ur Epithelial Cells Few (None Seen) /HPF Urine Bacteria None Seen (None Seen) /HPF Urine Culture Reflexed NO (NO) Stl Occult Blood (IFOB) POSITIVE A (NEGATIVE) Slides for Path Review 12/29/23 12/29/23 Range/Units 21:50 21:50 WBC 21.6 H (4.23-9.07) x10^3/uL RBC 5.58 (4.63-6.08) x10^6/uL Hgb 16.8 (13.7-17.5) g/dL Hct 51.7 H (40.1-51.0) % MCV 92.7 H (79.0-92.2) fL MCH 30.1 (25.7-32.2) pg MCHC 32.5 (32.3-36.5) g/dL RDW 13.7 (11.6-14.4) % Plt Count 266 (163-337) x10^3/uL MPV 9.3 L (9.4-12.4) fL Gran % 88.2 H (34.0-67.9) % Immature Gran % (Auto) 0.5 H (0.001-0.429) % Nucleat RBC Rel Count 0.0 (0.00-0.2) % Eos # (Auto) 0.02 L (0.04-0.54) x10^3/uL Immature Gran # (Auto) 0.10 H (0.001-0.031) x10^3u/L Absolute Lymphs (auto) 0.69 L (1.32-3.57) x10^3/uL Absolute Monos (auto) 1.71 H (0.30-0.82) x10^3/uL Absolute Nucleated RBC 0.00 (0.00-0.012) x10^3u/L Lymphocytes % 3.2 L (21.8-53.1) % Monocytes % 7.9 (5.3-12.2) % Eosinophils % 0.1 L (0.8-7.0) % Basophils % 0.1 L (0.2-1.2) % Absolute Granulocytes 19.06 H (1.78-5.38) x10^3/uL Basophils # 0.03 (0.01-0.08) x10^3/uL Sodium 139 (135-145) mmol/L Potassium 5.8 H (3.5-5.1) mmol/L Chloride 104 (98-107) mmol/L Carbon Dioxide 25 (22-30) mmol/L Anion Gap 15.9 H (5-15) MEQ/L BUN 48 H (9-20) mg/dL Creatinine 3.36 H (0.66-1.25) mg/dL Estimated GFR 20.4 ML/MIN Glucose 191 H (74-106) mg/dL Lactic Acid (0.4-2.0) Calcium 9.7 (8.4-10.2) mg/dL Total Bilirubin 0.50 (0.2-1.3) mg/dL AST 36 (17-59) U/L ALT 27 (0-50) U/L Alkaline Phosphatase 92 (38-126) U/L Serum Total Protein 7.4 (6.3-8.2) g/dL Albumin 4.4 (3.5-5.0) g/dL Lipase 235 (23-300) U/L Urine Color (Yellow) Urine Appearance (Clear) Urine pH (4.6-8.0) Ur Specific [place] (1.005-1.030) Urine Protein (Negative) Urine Glucose (UA) (Negative) mg/dL Urine Ketones (Negative) Urine Blood (Negative) Urine Nitrite (Negative) Urine Bilirubin (Negative) Urine Urobilinogen (0.2) mg/dL Ur Leukocyte Esterase (Negative) U Hyaline Cast (Auto) (0-2) /LPF Urine Microscopic RBC (0-5) /HPF Urine Microscopic WBC (0-5) /HPF Ur Epithelial Cells (None Seen) /HPF Urine Bacteria (None Seen) /HPF Urine Culture Reflexed (NO) Stl Occult Blood (IFOB) (NEGATIVE) Slides for Path Review YES - Progress Progress: improved, re-examined Progress Note: 12/30/23 00:34 58 years old is evaluated in the ER for right-sided abdominal pain sudden onset followed by diarrhea and hematochezia. He is given fluids and symptomatic treatment, on reevaluation feeling better. Workup showed white count of 21, hemoglobin of 16.8, normal platelets. Chemistries with baseline creatinine of 1.7 and today is 3.3 with a potassium of 5.8. He is given hyperkalemia medic ation with dextrose/insulin/sodium bicarb and [place]. EKG is sinus rhythm with no tall T waves. Obtained CT abdomen pelvis without contrast which is essentially unremarkable for any acute findings. On reevaluation patient pain is better, minimal tenderness on reevaluation. Has no hemorrhoids. Occult is positive. I have shared the results of workup with patient and family, recommended admission which they understand and agree. I have discussed with Dr. Cecil mcmanus, reviewed history, workup, agreed with doing antibiotics for elevated white count although CT did not show obvious colitis. Patient is accepted for admission. Discussed with Dr.: Other (Dr. Rivera hospitalist) Will see patient in: hospital (observation) Counseled pt/family regarding: lab results, diagnosis, need for follow-up, rad results, smoking cessation Medical Desision Making - Independent Historian Additional History obtained from: Spouse - Discussion of managment Care discussed with:: hospitalist (Dr. Cecil mcmanus) Agreed on:: Treatment plan, place in obs Will see patient: in hospital - Departure Departure Disposition: Observation Clinical Impression: Leukocytosis, Acute renal failure (ARF), Hyperkalemia, Right sided abdominal pain, Rectal bleeding Condition: Stable Critical Care Time: No Referrals: HOSPITAL,'S [Primary Care Provider] - Follow up/PCP as directed
[2023-12-29] MEDS ORDERED: Sodium Chloride 0.9% 1000 ML 1,000 ML ONE ×2 (21:46→23:20)
[2023-12-29] MEDS: Sodium Chloride 0.9% 1000 ML 1,000 ML IV STA ×2 (21:57→23:26)
[2023-12-29 21:59] LABS: Absolute Neutrophil Ct (ANC) 19.06 x10^3/uL (1.78-5.38); BASOPHIL % 0.1 % (0.2-1.2); Basophil (Absolute #) 0.03 x10^3/uL (0.01-0.08); Eosinophil % 0.1 % (0.8-7.0); Eosinophil (Absolute #) 0.02 x10^3/uL (0.04-0.54); Hematocrit 51.7 % (40.1-51.0); Hemoglobin 16.8 g/dL (13.7-17.5); IMMATURE GRAN % 0.5 % (0.001-0.429); Lymphocyte (Absolute #) 0.69 x10^3/uL (1.32-3.57); Lymphocytes % 3.2 % (21.8-53.1); Mean Cell Volume 92.7 fL (79.0-92.2); Mean Corpuscular Hemoglobin 30.1 pg (25.7-32.2); Mean Corpuscular Hgb Concent. 32.5 g/dL (32.3-36.5); Mean Platelet Volume 9.3 fL (9.4-12.4); Monocyte (Absolute #) 1.71 x10^3/uL (0.30-0.82); Monocytes % 7.9 % (5.3-12.2); Neutrophil % 88.2 % (34.0-67.9); Platelet Count 266 x10^3/uL (163-337); Red Blood Count 5.58 x10^6/uL (4.63-6.08); Red Cell Distribution Width 13.7 % (11.6-14.4); White Blood Count 21.6 x10^3/uL (4.23-9.07)
[2023-12-29 22:13] LABS: ALBUMIN 4.4 g/dL (3.5-5.0); ANION GAP 15.9 MEQ/L (5-15); BILIRUBIN,TOTAL 0.5 mg/dL (0.2-1.3); Calcium 9.7 mg/dL (8.4-10.2); Creatinine 1 3.36 mg/dL (0.66-1.25); EST GLOMERULAR FILTRATION RATE 20.4 ML/MIN; Potassium 5.8 mmol/L (3.5-5.1); Total Protein 7.4 g/dL (6.3-8.2)
[2023-12-29 22:55] LABS: IFOB TEST RESULTS POSITIVE (NEGATIVE)
[2023-12-29 23:01] LABS: Slide Review 1 YES
[2023-12-29] MEDS ORDERED: HUMULIN R ONE (23:06)
[2023-12-29] MEDS ORDERED: D50W 50 ml Abboject IV ONE (23:06)
[2023-12-29] MEDS ORDERED: SODIUM BICARBONATE 50 MEQ/50 ML ABBOJECT IV ONE (23:07)
[2023-12-29] MEDS ORDERED: VELTASSA PO ONE (23:07)
[2023-12-29 23:13] LABS: Appearance Cloudy (Clear); Bacteria None Seen /HPF (None Seen); Bilirubin Negative (Negative); Blood Negative (Negative); Epithelial Cells Few /HPF (None Seen); Glucose, Urine Negative (Negative); Ketones Trace (Negative); Leukocyte Esterase Trace (Negative); Nitrite Negative (Negative); Protein,Urine Dip 100 (Negative); RBC 0-2 /HPF (0-5)
[2023-12-29 23:14] LABS: ADD URINE CULTURE? NO (NO); Hyaline Casts 20-50 /LPF (0-2)
[2023-12-29] MEDS: D50W 50 ml Abboject IV ONE (23:14)
[2023-12-29] MEDS: HUMULIN R IV ONE (23:14)
[2023-12-29] MEDS: VELTASSA PO STA (23:15)
[2023-12-29] MEDS: SODIUM BICARBONATE 50 MEQ/50 ML ABBOJECT IV ONE (23:15)
--- NOTE | 2023-12-30 00:17 | XRAY ---
CLINICAL HISTORY: right side pain/rectal bleed COMPARISON: Comparison is made with 11/12/2019 CT. TECHNIQUE: Non-contrast CT of the abdomen and pelvis was performed, with the following protocol: axial images, and reconstructed coronal and sagittal images. One of the following dose reduction techniques was utilized for this exam: Automated exposure control, adjustment of the mA and/or kV according to patient size, and use of iterative reconstruction. FINDINGS: Abdomen: Liver: Normal in size, shape, and density. No focal lesions, cysts, or masses were identified. Gallbladder and Biliary System: The gallbladder is normal in size and shape. No wall thickening, pericholecystic fluid, or gallstones were identified. Pancreas: Pancreatic head, body, and tail are visualized and appear normal in size and density. No pancreatic masses or calcifications were noted. Spleen: Normal in size, shape, and density. No splenic lesions or masses were identified. Kidneys and Adrenal Glands: Both kidneys are normal in size, shape, and position. Cortical thickness is within normal limits. No renal calculi or hydronephrosis. Adrenal glands are unremarkable. Abdominal Aorta and Vessels: The abdominal aorta and major branches are patent without evidence of an aneurysm or significant atherosclerosis. Pelvis: Urinary Bladder: Empty. No intraluminal lesions. Prostate: Normal in size and contour. No masses or abnormal thickening. Seminal Vesicles: Normal appearance without abnormal enlargement or mass. Both testicles are seen next to the inguinal canal, suggestive of retracted testicles. Peritoneal and Retroperitoneal Structures: No free fluid or abnormal fluid collections were identified within the abdomen or pelvis. No lymphadenopathy was noted. Abdominal aorta and iliac arteries show calcified plaques. Bowel: The visualized bowel loops are normal in caliber and appearance. No evidence of bowel obstruction or wall thickening. No sign of appendicitis. Bones and Soft Tissues: Degenerative changes of the lumbar spine noted. There is grade I anterior listhesis of the L4 vertebra over the L5 vertebra with bilateral pars interarticularis fractures. Pelvic bones and soft tissues are unremarkable. No fractures or abnormal masses were identified. IMPRESSION: Overall, non-contrast CT abdomen and pelvis demonstrate no evidence of acute intra-abdominal pathology. Grade I spondylolisthesis of the L4-L5 level. Degenerative changes of the lumbar spine. No significant interval changes. Electronically Signed by: Leilani Farias MD. (12/30/2023 00:12:04 EDT)
[2023-12-30] MEDS ORDERED: PIPERACILLIN/TAZOBACTAM IV ONE (00:33)
[2023-12-30] MEDS ORDERED: Sodium Chloride 100ML MINI-BAG PLUS 100 ML IV ONE (00:34)
[2023-12-30] MEDS: PIPERACILLIN/TAZOBACTAM 3.375 GM in Sodium Chloride 100ML MINI-BAG PLUS 100 ML IV ONE (00:39)
--- NOTE | 2023-12-30 03:23 | PCM.HP ---
History of Present Illness - Chief Complaint Chief Complaint: hyperkalemia, ARF Date: 12/30/23 History of Present Illness: 58 years old very pleasant male with past medical history significant for coronary artery disease and hypertension came to the ER complaining of sudden onset of right lower quadrant pain radiated across the bellybutton without any nausea vomiting fever chills. Subsequently developed bright red blood through rectum 5-6 episodes since yesterday. He reported never having the symptoms ever before. He underwent colonoscopy 15 years ago but not sure about the finding. In the ER hemodynamically stable. Lab workup was remarkable for high white cell count, acute kidney injury, hyperkalemia and high lactate, CT abdomen pelvis without contrast remained unremarkable, patient was given fluids started on antibiotic and admitted for further care - Review of Systems All Other Systems: Reviewed and Negative (14 systems reviewed and marked ve except mentioned in [place]) Medications & Allergies Home Medications: Home Medication List Aspirin [Adult Aspirin Regimen] 81 mg PO DAILY 12/29/23 [History Confirmed 12/29/23] Clopidogrel Bisulfate [Plavix] 75 mg PO DAILY 12/29/23 [History Confirmed 12/29/23] Losartan Potassium [Cozaar] 100 mg PO DAILY 12/29/23 [History Confirmed 12/29/23] Allergies/Adverse Reactions: Allergies Allergy/AdvReac Type Severity Reaction Status Date / Time No Known Drug Allergies Allergy Verified 12/29/23 21:27 - Past Medical History Past Medical History: Yes Neurological History: No Pertinent History ENT History: No Pertinent History Cardiac History: Arrhythmia, Hypertension, Other Respiratory History: No Pertinent History Endocrine Medical History: No Pertinent History Musculoskelatal History: Degenerative Disk Disease GI Medical History: Irritable Bowel History: No Pertinent History Pyscho-Social History: No Pertinent History Male Reproductive Disorders: No Pertinent History Comment: MVP, Nodule on lung - Past Surgical History Past Surgical History: Yes Neuro Surgical History: No Pertinent History Cardiac History: Cardiac Catheterization, Cardiac Stent Respiratory Surgery: No Pertinent History GI Surgical History: No Pertinent History Genitourinary Surgical Hx: No Pertinent History Musculskeletal Surgical Hx: Orthopedic Surgery Male Surgical History: No Pertinent History Other Surgical History: LEFT WRIST SURGERY Significant Family History: no pertinent family hx - Social History Smoking Status: Current every day smoker How long have you smoked: 30 years Exposure to second hand smoke: Yes Alcohol: None Drug Use: marijuana, methamphetamines - Social Determinants of Health Will the patient participate in the screening: Yes Do you worry about a steady place to live?: No Do you have any problems with any of the following?: No known problems In the past 12 months,have you had to go without utilities?: No Have you or anyone in your house had to go without enough: No Transportation Issues: No Has anyone in your support network made you feel unsafe?: No Does the patient want assistance with any of the above?: No - Physical Exam Vital Signs: Vital Signs - 24 hr Temp Pulse Resp BP BP Pulse Ox 12/30/23 02:29 97.9 F 85 18 139/76 98 12/30/23 02:16 86 14 112/79 99 12/30/23 02:10 89 14 12/30/23 02:00 85 16 12/30/23 01:50 84 13 12/30/23 01:40 86 14 100 12/30/23 01:32 87 12 12/30/23 01:02 83 18 155/105 100 12/30/23 00:40 100 12/30/23 00:32 85 15 146/89 86 L 12/30/23 00:00 84 16 161/99 100 12/29/23 23:30 84 12 128/85 100 12/29/23 23:00 144/100 100 12/29/23 22:58 100 12/29/23 22:13 149/89 12/29/23 21:09 97.3 F 87 16 138/84 100 Additional Findings: 12/30/23 03:17 HEENT Middle aged, average built in no distress NECK Supple,no thyromegaly, CVS S1+S2 + 0, no murmers RESP Bilateral equal air entry without Crepts/Wheezes heard GIT Soft non tender,non distended Skin, No rah, no Bruises LEGS No Edema PSYCH Normal,mood, judgement and insight NEURO AOX3, no focal deficit Results - Labs Lab/Micro Results: Lab Results-Last 24 Hours 12/29/23 12/29/23 12/29/23 Range/Units 21:50 21:50 21:55 WBC 21.6 H (4.23-9.07) x10^3/uL RBC 5.58 (4.63-6.08) x10^6/uL Hgb 16.8 (13.7-17.5) g/dL Hct 51.7 H (40.1-51.0) % MCV 92.7 H (79.0-92.2) fL MCH 30.1 (25.7-32.2) pg MCHC 32.5 (32.3-36.5) g/dL RDW 13.7 (11.6-14.4) % Plt Count 266 (163-337) x10^3/uL MPV 9.3 L (9.4-12.4) fL Gran % 88.2 H (34.0-67.9) % Immature Gran % (Auto) 0.5 H (0.001-0.429) % Nucleat RBC Rel Count 0.0 (0.00-0.2) % Eos # (Auto) 0.02 L (0.04-0.54) x10^3/uL Immature Gran # (Auto) 0.10 H (0.001-0.031) x10^3u/L Absolute Lymphs (auto) 0.69 L (1.32-3.57) x10^3/uL Absolute Monos (auto) 1.71 H (0.30-0.82) x10^3/uL Absolute Nucleated RBC 0.00 (0.00-0.012) x10^3u/L Lymphocytes % 3.2 L (21.8-53.1) % Monocytes % 7.9 (5.3-12.2) % Eosinophils % 0.1 L (0.8-7.0) % Basophils % 0.1 L (0.2-1.2) % Absolute Granulocytes 19.06 H (1.78-5.38) x10^3/uL Basophils # 0.03 (0.01-0.08) x10^3/uL Sodium 139 (135-145) mmol/L Potassium 5.8 H (3.5-5.1) mmol/L Chloride 104 (98-107) mmol/L Carbon Dioxide 25 (22-30) mmol/L Anion Gap 15.9 H (5-15) MEQ/L BUN 48 H (9-20) mg/dL Creatinine 3.36 H (0.66-1.25) mg/dL Estimated GFR 20.4 ML/MIN Glucose 191 H (74-106) mg/dL POC Glucometer (74 to 106) mg/dL Lactic Acid 2.4 H (0.4-2.0) Calcium 9.7 (8.4-10.2) mg/dL Total Bilirubin 0.50 (0.2-1.3) mg/dL AST 36 (17-59) U/L ALT 27 (0-50) U/L Alkaline Phosphatase 92 (38-126) U/L Serum Total Protein 7.4 (6.3-8.2) g/dL Albumin 4.4 (3.5-5.0) g/dL Lipase 235 (23-300) U/L Urine Color (Yellow) Urine Appearance (Clear) Urine pH (4.6-8.0) Ur Specific [place] (1.005-1.030) Urine Protein (Negative) Urine Glucose (UA) (Negative) mg/dL Urine Ketones (Negative) Urine Blood (Negative) Urine Nitrite (Negative) Urine Bilirubin (Negative) Urine Urobilinogen (0.2) mg/dL Ur Leukocyte Esterase (Negative) U Hyaline Cast (Auto) (0-2) /LPF Urine Microscopic RBC (0-5) /HPF Urine Microscopic WBC (0-5) /HPF Ur Epithelial Cells (None Seen) /HPF Urine Bacteria (None Seen) /HPF Urine Culture Reflexed (NO) Stl Occult Blood (IFOB) (NEGATIVE) Slides for Path Review YES 12/29/23 12/29/23 12/30/23 Range/Units 22:48 22:48 00:21 WBC (4.23-9.07) x10^3/uL RBC (4.63-6.08) x10^6/uL Hgb (13.7-17.5) g/dL Hct (40.1-51.0) % MCV (79.0-92.2) fL MCH (25.7-32.2) pg MCHC (32.3-36.5) g/dL RDW (11.6-14.4) % Plt Count (163-337) x10^3/uL MPV (9.4-12.4) fL Gran % (34.0-67.9) % Immature Gran % (Auto) (0.001-0.429) % Nucleat RBC Rel Count (0.00-0.2) % Eos # (Auto) (0.04-0.54) x10^3/uL Immature Gran # (Auto) (0.001-0.031) x10^3u/L Absolute Lymphs (auto) (1.32-3.57) x10^3/uL Absolute Monos (auto) (0.30-0.82) x10^3/uL Absolute Nucleated RBC (0.00-0.012) x10^3u/L Lymphocytes % (21.8-53.1) % Monocytes % (5.3-12.2) % Eosinophils % (0.8-7.0) % Basophils % (0.2-1.2) % Absolute Granulocytes (1.78-5.38) x10^3/uL Basophils # (0.01-0.08) x10^3/uL Sodium (135-145) mmol/L Potassium (3.5-5.1) mmol/L Chloride (98-107) mmol/L Carbon Dioxide (22-30) mmol/L Anion Gap (5-15) MEQ/L BUN (9-20) mg/dL Creatinine (0.66-1.25) mg/dL Estimated GFR ML/MIN Glucose (74-106) mg/dL POC Glucometer 97 (74 to 106) mg/dL Lactic Acid (0.4-2.0) Calcium (8.4-10.2) mg/dL Total Bilirubin (0.2-1.3) mg/dL AST (17-59) U/L ALT (0-50) U/L Alkaline Phosphatase (38-126) U/L Serum Total Protein (6.3-8.2) g/dL Albumin (3.5-5.0) g/dL Lipase (23-300) U/L Urine Color Dark Yellow (Yellow) Urine Appearance Cloudy A (Clear) Urine pH 5.0 (4.6-8.0) Ur Specific [place] 1.020 (1.005-1.030) Urine Protein 100 A (Negative) Urine Glucose (UA) Negative (Negative) mg/dL Urine Ketones Trace A (Negative) Urine Blood Negative (Negative) Urine Nitrite Negative (Negative) Urine Bilirubin Negative (Negative) Urine Urobilinogen 1.0 A (0.2) mg/dL Ur Leukocyte Esterase Trace A (Negative) U Hyaline Cast (Auto) 20-50 (0-2) /LPF Urine Microscopic RBC 0-2 (0-5) /HPF Urine Microscopic WBC 3-5 (0-5) /HPF Ur Epithelial Cells Few (None Seen) /HPF Urine Bacteria None Seen (None Seen) /HPF Urine Culture Reflexed NO (NO) Stl Occult Blood (IFOB) POSITIVE A (NEGATIVE) Slides for Path Review 12/30/23 Range/Units 01:06 WBC (4.23-9.07) x10^3/uL RBC (4.63-6.08) x10^6/uL Hgb (13.7-17.5) g/dL Hct (40.1-51.0) % MCV (79.0-92.2) fL MCH (25.7-32.2) pg MCHC (32.3-36.5) g/dL RDW (11.6-14.4) % Plt Count (163-337) x10^3/uL MPV (9.4-12.4) fL Gran % (34.0-67.9) % Immature Gran % (Auto) (0.001-0.429) % Nucleat RBC Rel Count (0.00-0.2) % Eos # (Auto) (0.04-0.54) x10^3/uL Immature Gran # (Auto) (0.001-0.031) x10^3u/L Absolute Lymphs (auto) (1.32-3.57) x10^3/uL Absolute Monos (auto) (0.30-0.82) x10^3/uL Absolute Nucleated RBC (0.00-0.012) x10^3u/L Lymphocytes % (21.8-53.1) % Monocytes % (5.3-12.2) % Eosinophils % (0.8-7.0) % Basophils % (0.2-1.2) % Absolute Granulocytes (1.78-5.38) x10^3/uL Basophils # (0.01-0.08) x10^3/uL Sodium (135-145) mmol/L Potassium (3.5-5.1) mmol/L Chloride (98-107) mmol/L Carbon Dioxide (22-30) mmol/L Anion Gap (5-15) MEQ/L BUN (9-20) mg/dL Creatinine (0.66-1.25) mg/dL Estimated GFR ML/MIN Glucose (74-106) mg/dL POC Glucometer 111 H (74 to 106) mg/dL Lactic Acid (0.4-2.0) Calcium (8.4-10.2) mg/dL Total Bilirubin (0.2-1.3) mg/dL AST (17-59) U/L ALT (0-50) U/L Alkaline Phosphatase (38-126) U/L Serum Total Protein (6.3-8.2) g/dL Albumin (3.5-5.0) g/dL Lipase (23-300) U/L Urine Color (Yellow) Urine Appearance (Clear) Urine pH (4.6-8.0) Ur Specific [place] (1.005-1.030) Urine Protein (Negative) Urine Glucose (UA) (Negative) mg/dL Urine Ketones (Negative) Urine Blood (Negative) Urine Nitrite (Negative) Urine Bilirubin (Negative) Urine Urobilinogen (0.2) mg/dL Ur Leukocyte Esterase (Negative) U Hyaline Cast (Auto) (0-2) /LPF Urine Microscopic RBC (0-5) /HPF Urine Microscopic WBC (0-5) /HPF Ur Epithelial Cells (None Seen) /HPF Urine Bacteria (None Seen) /HPF Urine Culture Reflexed (NO) Stl Occult Blood (IFOB) (NEGATIVE) Slides for Path Review - Radiology Impressions Radiology Exams & Impressions: Radiology Procedures Category Date Time Status ABDOMEN AND PELVIS W/0 CONTRAS [CT] Stat Exams 12/29/23 22:52 Completed - Other Procedures and Tests Respiratory Therapy 12/30/23 01:17 Respiratory Therapy Consult ONCE Assessment/Plan (1) Acute renal failure (ARF) Current Visit: Yes Status: Acute (2) Hyperkalemia Current Visit: Yes Status: Acute Code(s): E87.5 - HYPERKALEMIA (3) Leukocytosis Current Visit: Yes Status: Acute Code(s): D72.829 - ELEVATED WHITE BLOOD CELL COUNT, UNSPECIFIED (4) Rectal bleeding Current Visit: Yes Status: Acute Code(s): K62.5 - HEMORRHAGE OF ANUS AND RECTUM (5) Hypertension Current Visit: No Status: Acute Code(s): I10 - ESSENTIAL (PRIMARY) HYPERTENSION Telemedicine Encounter - Telemedicine Encounter Telemedicine Encounter: The entirety of this encounter was performed via Telemedicine This visit was performed using real-time audio and video connection between my location and thepatients locationwith the assistance of a surrogateat the patients location. Written or verbal consent was obtained from the patient/guardian to perform this visit using[employer] technology. Any patient questions regarding the telemedicine interaction were answered. Acute abdominal pain Admitted with sudden onset of right lower quadrant pain, with bright red blood per rectum, high lactate level CT remained unremarkable Differentials include ischemic colitis Continue antibiotics Zosyn Continue hydration Continue pain meds Bright red blood per rectum Reported having 5-6 small amount of BR BP Hemoglobin remained stable Etiology seems ischemic colitis Will c/w aspirin, keep holding plavix for now Might need to involve GI in a.m., Pt may get benefit from colonoscopy for definite diagnosis Hyperkalemia Potassium upon admission 5.8 Received immediate hyperkalemic protocol in ER Will recheck potassium Acute kidney injury Baseline creatinine 1.7 Creatinine upon admission 3.3 Continue IV fluids Keep avoiding nephrotoxins Hypertension Blood pressure towards softer side Will Hold home blood pressure meds for now Losartan on hold due to ZACH Coronary artery disease S/p stent Denied having any history of chest pain or shortness of breath continue home meds aspirin only, keep holding plavix/losartan for now DVT prophylaxis SCD GI prophylaxis pantoprazole CODE STATUS full Discharge planning pending clinical stability. Time spent in the care of this sick pt pt was > 40 min including FTF through televisit, chart review/coordination of care with patient and staff,I have reviewed patient lab vitals and imaging detail all question and concerns were addressed
[2023-12-30] MEDS: PROTONIX 40 MG IV IV SCH (04:08)
[2023-12-30 05:29] LABS: Absolute Neutrophil Ct (ANC) 9.72 x10^3/uL (1.78-5.38); BASOPHIL % 0.2 % (0.2-1.2); Basophil (Absolute #) 0.03 x10^3/uL (0.01-0.08); Eosinophil % 0.1 % (0.8-7.0); Eosinophil (Absolute #) 0.01 x10^3/uL (0.04-0.54); Hematocrit 45.7 % (40.1-51.0); Hemoglobin 15.2 g/dL (13.7-17.5); IMMATURE GRAN # 0.04 x10^3u/L (0.001-0.031); IMMATURE GRAN % 0.3 % (0.001-0.429); Lymphocyte (Absolute #) 1.53 x10^3/uL (1.32-3.57); Lymphocytes % 12.6 % (21.8-53.1); Mean Cell Volume 90.3 fL (79.0-92.2); Mean Corpuscular Hgb Concent. 33.3 g/dL (32.3-36.5); Monocyte (Absolute #) 0.77 x10^3/uL (0.30-0.82); Monocytes % 6.4 % (5.3-12.2); Neutrophil % 80.4 % (34.0-67.9); Platelet Count 248 x10^3/uL (163-337); Red Blood Count 5.06 x10^6/uL (4.63-6.08); White Blood Count 12.1 x10^3/uL (4.23-9.07)
[2023-12-30 05:55] LABS: ALBUMIN 3.6 g/dL (3.5-5.0); ANION GAP 11.9 MEQ/L (5-15); BILIRUBIN,TOTAL 0.4 mg/dL (0.2-1.3); Calcium 9.1 mg/dL (8.4-10.2); Creatinine 1 2.72 mg/dL (0.66-1.25); EST GLOMERULAR FILTRATION RATE 26.3 ML/MIN; Potassium 4.5 mmol/L (3.5-5.1); Total Protein 6.2 g/dL (6.3-8.2)
[2023-12-30] MEDS: Sodium Chloride 0.9% 1000 ML 1,000 ML IV SCH (08:00)
[2023-12-30] MEDS: PIPERACILLIN/TAZOBACTAM 3.375 GM in Sodium Chloride 100ML MINI-BAG PLUS 100 ML IV SCH (09:40)
[2023-12-30] MEDS ORDERED: PLAVIX Tablet PO SCH (10:00)
--- NOTE | 2023-12-30 13:20 | XRAY ---
Indication: Abdominal pain. Acute kidney injury. Negative CT abdomen/pelvis 1 day earlier. Two-dimensional abdominal sonogram performed. Comparison: None Nonvisualization spleen due to overlying bowel gas. Visualized liver, pancreas, and spleen are homogeneous in echogenicity. No organomegaly or free fluid. Visualized gallbladder normally distended without gallstones, wall thickening, or pericholecystic fluid. Common bile duct measures 3.6 mm. No intrahepatic biliary distention. Visualized aorta and IVC are normal in course and caliber. Right kidney measures 9.2 x 5.2 x 3.9 cm and left measures 8.5 x 5.8 x 5.0 cm. 7 mm left lower renal cortical cyst. No solid renal mass or hydronephrosis. Corticomedullary differentiation preserved. Normal distended urinary bladder is grossly unremarkable. Normal left ureteral jet. Right ureteral jet not seen within the allotted exam time. Prevoid bladder volume is 174 cc. Postvoid volume is 15 cc. Targeted ultrasound left and right lower quadrants negative for focal solid/cystic mass. Impression: 1. Nonvisualization spleen. 2. Tiny left renal cyst. 3. Small urinary bladder postvoid residual. 3. Remaining abdominal sonogram is negative.
[2023-12-30] MEDS: ECOTRIN 81 MG PO SCH (15:46)
--- NOTE | 2023-12-31 05:08 | PCM.NOTE ---
Date and Time: 12/31/23 0503 Subjective Assessment: 8 years old very pleasant male with past medical history significant for coronary artery disease and hypertension came to the ER complaining of sudden onset of right lower quadrant pain radiated across the bellybutton without any nausea vomiting fever chills. Subsequently developed bright red blood through rectum 5-6 episodes since yesterday. He reported never having the symptoms ever before. He underwent colonoscopy 15 years ago but not sure about the finding. In the ER hemodynamically stable. Lab workup was remarkable for high white cell count, acute kidney injury, hyperkalemia and high lactate, CT abdomen pelvis without contrast remained unremarkable, patient was given fluids started on ant ibiotic and admitted for further care 12/31/23: Met with patient bedside. Endorses five episodes of diarrhea last night - none today. No longer having abdominal pain or blood in stool. Surgery consulted on patient - can follow up OP for colonoscopy. WBC downtrending. Creat improving. Abd Us unremarkable. Will repeat urine and CXR today. Nephrology will follow up with patient on Tuesday as OP. Blood cultures with NGTD. - Review of Systems Constitutional: No Symptoms Eyes: No Symptoms Ears, Nose, & Throat: No Symptoms Respiratory: No Symptoms Cardiac: No Symptoms Abdominal/Gastrointestinal: Diarrhea Genitourinary Symptoms: No Symptoms Musculoskeletal: No Symptoms Skin: No Symptoms Neurological: No Symptoms Psychological: No Symptoms Hematologic/Lymphatic: No Symptoms Immunological/Allergic: No Symptoms Objective Exam General Appearance: no apparent distress Neurologic Exam: alert, oriented x 3, cooperative Skin Exam: normal color Eye Exam: PERRL Ears, Nose, Throat Exam: normal ENT inspection Neck Exam: normal inspection Respiratory Exam: normal breath sounds, lungs clear Cardiovascular Exam: regular rate/rhythm, normal heart sounds Gastrointestinal/Abdomen Exam: soft, normal bowel sounds Extremity Exam: normal inspection Back Exam: normal inspection Male Genitalia Exam: deferred Rectal Exam: deferred Objective Data Vital Signs: Vital Signs - 24 hr Temp Pulse Resp BP Pulse Ox 12/31/23 04:00 97.3 F 70 20 129/78 94 L 12/30/23 23:35 97.5 F 80 20 129/75 94 L 12/30/23 19:14 97.5 F 77 18 130/80 96 12/30/23 16:00 97.7 F 78 16 130/72 97 09/06/24 12:00 97.6 F 83 16 126/85 96 12/30/23 07:54 97.8 F 79 18 121/66 92 L Pain Assessment - Last Documented Pain Intensity 0 Intake and Output: Intake & Output 12/28/23 12/29/23 12/30/23 12/31/23 11:59 11:59 11:59 11:59 Intake Total 5506 Balance 5506 Weight 73 kg Lab Results: Lab Results-Last 24 Hours 12/30/23 12/30/23 Range/Units 05:20 05:20 WBC 12.1 H (4.23-9.07) x10^3/uL RBC 5.06 (4.63-6.08) x10^6/uL Hgb 15.2 (13.7-17.5) g/dL Hct 45.7 (40.1-51.0) % MCV 90.3 (79.0-92.2) fL MCH 30.0 (25.7-32.2) pg MCHC 33.3 (32.3-36.5) g/dL RDW 14.0 (11.6-14.4) % Plt Count 248 (163-337) x10^3/uL MPV 10.0 (9.4-12.4) fL Gran % 80.4 H (34.0-67.9) % Immature Gran % (Auto) 0.3 (0.001-0.429) % Nucleat RBC Rel Count 0.0 (0.00-0.2) % Eos # (Auto) 0.01 L (0.04-0.54) x10^3/uL Immature Gran # (Auto) 0.04 H (0.001-0.031) x10^3u/L Absolute Lymphs (auto) 1.53 (1.32-3.57) x10^3/uL Absolute Monos (auto) 0.77 (0.30-0.82) x10^3/uL Absolute Nucleated RBC 0.00 (0.00-0.012) x10^3u/L Lymphocytes % 12.6 L (21.8-53.1) % Monocytes % 6.4 (5.3-12.2) % Eosinophils % 0.1 L (0.8-7.0) % Basophils % 0.2 (0.2-1.2) % Absolute Granulocytes 9.72 H (1.78-5.38) x10^3/uL Basophils # 0.03 (0.01-0.08) x10^3/uL Sodium 137 (135-145) mmol/L Potassium 4.5 D (3.5-5.1) mmol/L Chloride 107 (98-107) mmol/L Carbon Dioxide 23 (22-30) mmol/L Anion Gap 11.9 (5-15) MEQ/L BUN 43 H (9-20) mg/dL Creatinine 2.72 H (0.66-1.25) mg/dL Estimated GFR 26.3 ML/MIN Glucose 94 (74-106) mg/dL Calcium 9.1 (8.4-10.2) mg/dL Total Bilirubin 0.40 (0.2-1.3) mg/dL AST 28 (17-59) U/L ALT 19 (0-50) U/L Alkaline Phosphatase 82 (38-126) U/L Serum Total Protein 6.2 L (6.3-8.2) g/dL Albumin 3.6 (3.5-5.0) g/dL Radiology Exams: Radiology Procedures Category Date Time Status ABDOMEN AND PELVIS W/0 CONTRAS [CT] Stat Exams 12/29/23 22:52 Completed UPPER ABDOMEN [US] Urgent Exams 12/30/23 10:41 Completed Multi-Disciplinary Progress Notes: Multi-Disciplinary Progress Notes 12/30/23 10:00 (created 12/30/23 13:00) Case Management Note by Karina Guerrero PATIENT NORMALLLY USES [facility]- HE IS AWARE OF HE DISCHARGES OVER THE WEEKEND HE WILL NEED TO GET RX FILLED LOCALLY. HE IS AWARE OF THAT. CREDIT CONSULTANT NOTIFIED SO SHE CAN MAKE SURE WHAT SHE SENDS IS COST EFFECTIVE SINCE HE WILL ESSENTIALLY BE SELF PAY FOR THAT. SHE VERIFIED UNDERSTANDING. PATIENT [facility] Initialized on 12/30/23 13:00 - END OF NOTE Assessment/Plan (1) Acute renal failure (ARF) Current Visit: Yes Status: Acute Assessment & Plan: -Nephrology consulted - reviewed chart - continue IVF - follow up with pt on Tuesday as OP -Creat improving 2.07<2.75<3.36 -Monitor renal/lytes daily -Avoid MICHELE/ARB/NSAIDS/diuretics (2) Hyperkalemia Current Visit: Yes Status: Acute Assessment & Plan: -resolved Code(s): E87.5 - HYPERKALEMIA (3) Leukocytosis Current Visit: Yes Status: Acute Assessment & Plan: -Unknown etiology -Repeat UA/CXR -CT abdomen/ US abdomen with no acute findings -UDS -resp viral panel -Zosyn - trend WBC Code(s): D72.829 - ELEVATED WHITE BLOOD CELL COUNT, UNSPECIFIED (4) Rectal bleeding Current Visit: Yes Status: Acute Assessment & Plan: -Hgb at 12.6, down from 16.8 on admission - stable -Surgery consulted - will see as OP -occult stool + -IVF -tele -Protonix -Hold ASA -no longer with rectal bleeding -Monitor H&H closely - transfuse if hgb < 7 Code(s): K62.5 - HEMORRHAGE OF ANUS AND RECTUM (5) Right sided abdominal pain Current Visit: Yes Status: Acute Assessment & Plan: Admitted with sudden onset of right lower quadrant pain, with bright red blood per rectum, high lactate level -CT/ abd US unremarkable -Differentials include ischemic colitis -Continue antibiotics Zosyn -Continue IVF -Continue pain meds -Patient states pain has resolved today 12/31/23 no BRBPR Code(s): R10.9 - UNSPECIFIED ABDOMINAL PAIN (6) Hypertension Current Visit: No Status: Acute Assessment & Plan: -stable Code(s): I10 - ESSENTIAL (PRIMARY) HYPERTENSION
[2023-12-31 06:33] LABS: Absolute Neutrophil Ct (ANC) 8.01 x10^3/uL (1.78-5.38); BASOPHIL % 0.7 % (0.2-1.2); Basophil (Absolute #) 0.08 x10^3/uL (0.01-0.08); Eosinophil % 1.9 % (0.8-7.0); Eosinophil (Absolute #) 0.22 x10^3/uL (0.04-0.54); Hematocrit 38.9 % (40.1-51.0); Hemoglobin 12.6 g/dL (13.7-17.5); IMMATURE GRAN # 0.03 x10^3u/L (0.001-0.031); IMMATURE GRAN % 0.3 % (0.001-0.429); Lymphocyte (Absolute #) 2.46 x10^3/uL (1.32-3.57); Lymphocytes % 21.4 % (21.8-53.1); Mean Cell Volume 92.2 fL (79.0-92.2); Mean Corpuscular Hemoglobin 29.9 pg (25.7-32.2); Mean Corpuscular Hgb Concent. 32.4 g/dL (32.3-36.5); Mean Platelet Volume 10.1 fL (9.4-12.4); Monocyte (Absolute #) 0.68 x10^3/uL (0.30-0.82); Monocytes % 5.9 % (5.3-12.2); Neutrophil % 69.8 % (34.0-67.9); Platelet Count 216 x10^3/uL (163-337); Red Blood Count 4.22 x10^6/uL (4.63-6.08); Red Cell Distribution Width 14.1 % (11.6-14.4); White Blood Count 11.5 x10^3/uL (4.23-9.07)
[2023-12-31 06:37] LABS: ANION GAP 9.4 MEQ/L (5-15); BILIRUBIN,TOTAL 0.3 mg/dL (0.2-1.3); Calcium 8.3 mg/dL (8.4-10.2); Creatinine 1 2.07 mg/dL (0.66-1.25); EST GLOMERULAR FILTRATION RATE 36.4 ML/MIN; Potassium 4.8 mmol/L (3.5-5.1); Total Protein 5.3 g/dL (6.3-8.2)
[2023-12-31] MEDS: PROTONIX 40 MG IV IV SCH (10:51)
--- NOTE | 2023-12-31 15:03 | XRAY ---
CLINICAL HISTORY: leukocytosis sob COMPARISON: None. TECHNIQUE: X-ray chest was performed in AP portable projection. FINDINGS: ECG lead is noted. The lungs are well aerated. Focal opacities in the lower projection of the left hemithorax. A radiographic examination of the chest demonstrates bilateral prominent bronchovascular markings. No hydrothorax or pneumothorax was seen. No fracture was seen. Normal configuration of the mediastinum. The sukhdev are normal in size and position. Costophrenic and cardiophrenic angles are clear. The cardiac size is normal. The bony thorax shows degenerative changes. IMPRESSION: 1. Focal opacities in the lower projection of the left hemithorax.Could represent an inflammatory process. Would recommend clinical and lab correlation. X-ray follow-up advised. 2. Prominent perihilar broncho vascular markings suggest acute bronchitis. Please correlate clinically. Electronically Signed by: Leilani Farias MD. (12/31/2023 14:57:58 EDT)
[2023-12-31] MEDS ORDERED: HUMALOG SQ SCH (17:00)
--- NOTE | 2023-12-31 18:06 | PCM.HP ---
History of Present Illness - Chief Complaint Chief Complaint: hyperkalemia, ARF Date: 12/30/23 History of Present Illness: is a 58 year old male who presented after having cramping abdominal pain and multiple episodes of bloody stools. The patient presented to the ED. His Hgb was 16 on presentation. Pt states that he has not had any residual bleeding since presentation and he has had multiple brown stools over the past 24hrs with no blood. He denies any n/v, fevers, chills, CP, SOB. Pt's last colonoscopy was ~15 years ago. - Review of Systems All Other Systems: Reviewed and Negative (negative except as mentioned in HPI) Medications & Allergies Home Medications: Home Medication List Aspirin [Adult Aspirin Regimen] 81 mg PO DAILY 12/29/23 [History Confirmed 12/29/23] Clopidogrel Bisulfate [Plavix] 75 mg PO DAILY 12/29/23 [History Confirmed 12/29/23] Losartan Potassium [Cozaar] 100 mg PO DAILY 12/29/23 [History Confirmed 12/29/23] Allergies/Adverse Reactions: Allergies Allergy/AdvReac Type Severity Reaction Status Date / Time No Known Drug Allergies Allergy Verified 12/29/23 21:27 - Past Medical History Past Medical History: Yes Neurological History: No Pertinent History ENT History: No Pertinent History Cardiac History: Arrhythmia, Hypertension, Other Respiratory History: No Pertinent History Endocrine Medical History: No Pertinent History Musculoskelatal History: Degenerative Disk Disease GI Medical History: Irritable Bowel History: No Pertinent History Pyscho-Social History: No Pertinent History Male Reproductive Disorders: No Pertinent History Comment: MVP, Nodule on lung - Past Surgical History Past Surgical History: Yes Neuro Surgical History: No Pertinent History Cardiac History: Cardiac Catheterization, Cardiac Stent Respiratory Surgery: No Pertinent History GI Surgical History: No Pertinent History Genitourinary Surgical Hx: No Pertinent History Musculskeletal Surgical Hx: Orthopedic Surgery Male Surgical History: No Pertinent History Other Surgical History: LEFT WRIST SURGERY Significant Family History: no pertinent family hx - Social History Smoking Status: Current every day smoker How long have you smoked: 30 years Exposure to second hand smoke: Yes Alcohol: None Drug Use: marijuana, methamphetamines - Social Determinants of Health Will the patient participate in the screening: Yes Do you worry about a steady place to live?: No Do you have any problems with any of the following?: No known problems In the past 12 months,have you had to go without utilities?: No Have you or anyone in your house had to go without enough: No Transportation Issues: No Has anyone in your support network made you feel unsafe?: No Does the patient want assistance with any of the above?: No - Physical Exam Vital Signs: Vital Signs - 24 hr Temp Pulse Resp BP Pulse Ox 12/31/23 16:00 97.5 F 95 H 13 164/92 99 12/31/23 12:00 97.5 F 82 14 152/87 99 12/31/23 06:53 98.3 F 80 10 L 136/75 96 12/31/23 04:00 97.3 F 70 20 129/78 94 L 12/30/23 23:35 97.5 F 80 20 129/75 94 L 12/30/23 19:14 97.5 F 77 18 130/80 96 Additional Findings: General: in no acute cardiopulmonary distress Cards: regular rate Resp: Non-labored respirations Abd: soft, non-tender, non-distended Rectal exam: no masses palpated in the distal rectum, no blood, brown stool. Psych: Cooperative, answering questions appropriately. Results - Labs Lab/Micro Results: Lab Results-Last 24 Hours 12/31/23 12/31/23 12/31/23 Range/Units 06:15 06:15 06:15 WBC 11.5 H (4.23-9.07) x10^3/uL RBC 4.22 L (4.63-6.08) x10^6/uL Hgb 12.6 L (13.7-17.5) g/dL Hct 38.9 L (40.1-51.0) % MCV 92.2 (79.0-92.2) fL MCH 29.9 (25.7-32.2) pg MCHC 32.4 (32.3-36.5) g/dL RDW 14.1 (11.6-14.4) % Plt Count 216 (163-337) x10^3/uL MPV 10.1 (9.4-12.4) fL Gran % 69.8 H (34.0-67.9) % Immature Gran % (Auto) 0.3 (0.001-0.429) % Nucleat RBC Rel Count 0.0 (0.00-0.2) % Eos # (Auto) 0.22 (0.04-0.54) x10^3/uL Immature Gran # (Auto) 0.03 (0.001-0.031) x10^3u/L Absolute Lymphs (auto) 2.46 (1.32-3.57) x10^3/uL Absolute Monos (auto) 0.68 (0.30-0.82) x10^3/uL Absolute Nucleated RBC 0.00 (0.00-0.012) x10^3u/L Lymphocytes % 21.4 L (21.8-53.1) % Monocytes % 5.9 (5.3-12.2) % Eosinophils % 1.9 (0.8-7.0) % Basophils % 0.7 (0.2-1.2) % Absolute Granulocytes 8.01 H (1.78-5.38) x10^3/uL Basophils # 0.08 (0.01-0.08) x10^3/uL Sodium 138 (135-145) mmol/L Potassium 4.8 (3.5-5.1) mmol/L Chloride 113 H (98-107) mmol/L Carbon Dioxide 20 L (22-30) mmol/L Anion Gap 9.4 (5-15) MEQ/L BUN 29 H (9-20) mg/dL Creatinine 2.07 H (0.66-1.25) mg/dL Estimated GFR 36.4 ML/MIN Glucose 93 (74-106) mg/dL Calcium 8.3 L (8.4-10.2) mg/dL Total Bilirubin 0.30 (0.2-1.3) mg/dL AST 20 (17-59) U/L ALT 12 (0-50) U/L Alkaline Phosphatase 73 (38-126) U/L Serum Total Protein 5.3 L (6.3-8.2) g/dL Albumin 3.0 L (3.5-5.0) g/dL Procalcitonin 0.460 H (0.030-0.080) ng/mL Microbiology 12/30/23 02:00 Blood Culture - Preliminary Blood - Radiology Impressions Radiology Exams & Impressions: Radiology Procedures Category Date Time Status ABDOMEN AND PELVIS W/0 CONTRAS [CT] Stat Exams 12/29/23 22:52 Completed CHEST 1 VIEW (PORTABLE) Routine Exams 12/31/23 07:47 Completed UPPER ABDOMEN [US] Urgent Exams 12/30/23 10:41 Completed Assessment/Plan (1) Rectal bleeding Current Visit: Yes Status: Acute Assessment & Plan: Assessment: 58 yo male presents with c/o BRBPR and abdominal cramping. Pt with a few episodes of BRB per rectum. However, pt has remained hemodynamically stable with hgb of ~15-16. Plan: Recommend outpatient colonoscopy. Pt is on plavix due to stent placement 1 year ago. He will need cardiac clearance and to be off of blood thinners for the colonoscopy. Pt can follow up with me in the office to schedule his colonoscopy. Callie Sorto MD-[facility] General Surgery [facility]. Code(s): K62.5 - HEMORRHAGE OF ANUS AND RECTUM
--- NOTE | 2023-12-31 23:10 | PCM.NOTE ---
Date and Time: 12/31/232308 Subjective Assessment: Pt reports of chest discomfort. No SOB. EKG reviewed, no acute changes. BP elevated SBP 170s, home BP meds have been held due to ZACH, which is improving. Plavix has been held x 2 days due to potential GIB but he has not had any bleeding since admission and remains HDS. Plan 1. Restart coreg 12.5 mg BID 2. Restart plavix 75 mg daily 3. Ordered trops Objective Data Vital Signs: Vital Signs - 24 hr Temp Pulse Resp BP Pulse Ox 12/31/23 19:32 97.8 F 86 20 174/94 99 12/31/23 16:00 97.5 F 95 H 13 164/92 99 12/31/23 12:00 97.5 F 82 14 152/87 99 12/31/23 06:53 98.3 F 80 10 L 136/75 96 12/31/23 04:00 97.3 F 70 20 129/78 94 L 12/30/23 23:35 97.5 F 80 20 129/75 94 L Pain Assessment - Last Documented Pain Intensity 0 Intake and Output: Intake & Output 12/29/23 12/30/23 12/31/23 01/01/24 06:59 06:59 06:59 06:59 Intake Total 5506 1470 Balance 5506 1470 Weight 73 kg Lab Results: Lab Results-Last 24 Hours 12/31/23 12/31/23 12/31/23 Range/Units 06:15 06:15 06:15 WBC 11.5 H (4.23-9.07) x10^3/uL RBC 4.22 L (4.63-6.08) x10^6/uL Hgb 12.6 L (13.7-17.5) g/dL Hct 38.9 L (40.1-51.0) % MCV 92.2 (79.0-92.2) fL MCH 29.9 (25.7-32.2) pg MCHC 32.4 (32.3-36.5) g/dL RDW 14.1 (11.6-14.4) % Plt Count 216 (163-337) x10^3/uL MPV 10.1 (9.4-12.4) fL Gran % 69.8 H (34.0-67.9) % Immature Gran % (Auto) 0.3 (0.001-0.429) % Nucleat RBC Rel Count 0.0 (0.00-0.2) % Eos # (Auto) 0.22 (0.04-0.54) x10^3/uL Immature Gran # (Auto) 0.03 (0.001-0.031) x10^3u/L Absolute Lymphs (auto) 2.46 (1.32-3.57) x10^3/uL Absolute Monos (auto) 0.68 (0.30-0.82) x10^3/uL Absolute Nucleated RBC 0.00 (0.00-0.012) x10^3u/L Lymphocytes % 21.4 L (21.8-53.1) % Monocytes % 5.9 (5.3-12.2) % Eosinophils % 1.9 (0.8-7.0) % Basophils % 0.7 (0.2-1.2) % Absolute Granulocytes 8.01 H (1.78-5.38) x10^3/uL Basophils # 0.08 (0.01-0.08) x10^3/uL Sodium 138 (135-145) mmol/L Potassium 4.8 (3.5-5.1) mmol/L Chloride 113 H (98-107) mmol/L Carbon Dioxide 20 L (22-30) mmol/L Anion Gap 9.4 (5-15) MEQ/L BUN 29 H (9-20) mg/dL Creatinine 2.07 H (0.66-1.25) mg/dL Estimated GFR 36.4 ML/MIN Glucose 93 (74-106) mg/dL Calcium 8.3 L (8.4-10.2) mg/dL Total Bilirubin 0.30 (0.2-1.3) mg/dL AST 20 (17-59) U/L ALT 12 (0-50) U/L Alkaline Phosphatase 73 (38-126) U/L Serum Total Protein 5.3 L (6.3-8.2) g/dL Albumin 3.0 L (3.5-5.0) g/dL Procalcitonin 0.460 H (0.030-0.080) ng/mL Radiology Exams: Radiology Procedures Category Date Time Status ABDOMEN AND PELVIS W/0 CONTRAS [CT] Stat Exams 12/29/23 22:52 Completed CHEST 1 VIEW (PORTABLE) Routine Exams 12/31/23 07:47 Completed UPPER ABDOMEN [US] Urgent Exams 12/30/23 10:41 Completed Telemedicine Encounter - Telemedicine Encounter Telemedicine Encounter: "The entirety of this encounter was performed via Telemedicine" This visit was performed using real-time audio and video connection between my location and thepatients locationwith the assistance of a surrogateat the patients location. Written or verbal consent was obtained from the patient/guardian to perform this visit [facility] technology. Any patient questions regarding the telemedicine interaction were answered.
[2023-12-31] MEDS: PLAVIX Tablet PO ONE (23:16)
[2023-12-31] MEDS: COREG 12.5 MG PO ONE (23:16)
[2023-12-31] MEDS: PLAVIX Tablet PO SCH (23:24)
[2024-01-01] MEDS ORDERED: Nitrostat 0.4 MG Tablet SL PRN (00:45)
[2024-01-01] MEDS: ECOTRIN 81 MG PO ONE (00:56)
[2024-01-01] MEDS: MORPHINE SULFATE 2 MG INJ IV ONE (00:58)
--- NOTE | 2024-01-01 05:33 | PCM.NOTE ---
Date and Time: 01/01/24 0531 Subjective Assessment: 58 years old very pleasant male with past medical history significant for coronary artery disease and hypertension came to the ER complaining of sudden onset of right lower quadrant pain radiated across the bellybutton without any nausea vomiting fever chills. Subsequently developed bright red blood through rectum 5-6 episodes since yesterday. He reported never having the symptoms ever before. He underwent colonoscopy 15 years ago but not sure about the finding. In the ER hemodynamically stable. Lab workup was remarkable for high white cell count, acute kidney injury, hyperkalemia and high lactate, CT abdomen pelvis without contrast remained unremarkable, patient was given fluids started on an tibiotic and admitted for further care 12/31/23: Met with patient bedside. Endorses five episodes of diarrhea last night - none today. No longer having abdominal pain or blood in stool. Surgery consulted on patient - can follow up OP for colonoscopy. WBC downtrending. Creat improving. Abd Us unremarkable. Will repeat urine and CXR today. Nephrology will follow up with patient on Tuesday as OP. Blood cultures with NGTD. 12/31: Overnight events noted of chest pain. EKG with no acute changes. Troponins however are elevated. Objective Data Vital Signs: Vital Signs - 24 hr Temp Pulse Resp BP Pulse Ox 01/01/24 04:00 97.3 F 78 20 133/78 95 01/01/24 00:00 97.5 F 68 21 157/84 95 12/31/23 19:32 97.8 F 86 20 174/94 99 12/31/23 16:00 97.5 F 95 H 13 164/92 99 12/31/23 12:00 97.5 F 82 14 152/87 99 12/31/23 06:53 98.3 F 80 10 L 136/75 96 Pain Assessment - Last Documented Pain Intensity 0 Pain Scale Used 0-10 Pain Scale Intake and Output: Intake & Output 12/29/23 12/30/23 12/31/23 01/01/24 11:59 11:59 11:59 11:59 Intake Total 5700 4474 Balance 5726 4478 Weight 73 kg Lab Results: Lab Results-Last 24 Hours 12/31/23 12/31/23 12/31/23 Range/Units 06:15 06:15 06:15 WBC 11.5 H (4.23-9.07) x10^3/uL RBC 4.22 L (4.63-6.08) x10^6/uL Hgb 12.6 L (13.7-17.5) g/dL Hct 38.9 L (40.1-51.0) % MCV 92.2 (79.0-92.2) fL MCH 29.9 (25.7-32.2) pg MCHC 32.4 (32.3-36.5) g/dL RDW 14.1 (11.6-14.4) % Plt Count 216 (163-337) x10^3/uL MPV 10.1 (9.4-12.4) fL Gran % 69.8 H (34.0-67.9) % Immature Gran % (Auto) 0.3 (0.001-0.429) % Nucleat RBC Rel Count 0.0 (0.00-0.2) % Eos # (Auto) 0.22 (0.04-0.54) x10^3/uL Immature Gran # (Auto) 0.03 (0.001-0.031) x10^3u/L Absolute Lymphs (auto) 2.46 (1.32-3.57) x10^3/uL Absolute Monos (auto) 0.68 (0.30-0.82) x10^3/uL Absolute Nucleated RBC 0.00 (0.00-0.012) x10^3u/L Lymphocytes % 21.4 L (21.8-53.1) % Monocytes % 5.9 (5.3-12.2) % Eosinophils % 1.9 (0.8-7.0) % Basophils % 0.7 (0.2-1.2) % Absolute Granulocytes 8.01 H (1.78-5.38) x10^3/uL Basophils # 0.08 (0.01-0.08) x10^3/uL Sodium 138 (135-145) mmol/L Potassium 4.8 (3.5-5.1) mmol/L Chloride 113 H (98-107) mmol/L Carbon Dioxide 20 L (22-30) mmol/L Anion Gap 9.4 (5-15) MEQ/L BUN 29 H (9-20) mg/dL Creatinine 2.07 H (0.66-1.25) mg/dL Estimated GFR 36.4 ML/MIN Glucose 93 (74-106) mg/dL Lactic Acid (0.4-2.0) Calcium 8.3 L (8.4-10.2) mg/dL Total Bilirubin 0.30 (0.2-1.3) mg/dL AST 20 (17-59) U/L ALT 12 (0-50) U/L Alkaline Phosphatase 73 (38-126) U/L Troponin I (0.000-0.033) ng/mL Serum Total Protein 5.3 L (6.3-8.2) g/dL Albumin 3.0 L (3.5-5.0) g/dL Procalcitonin 0.460 H (0.030-0.080) ng/mL 12/31/23 01/01/24 01/01/24 Range/Units 22:57 03:31 05:00 WBC (4.23-9.07) x10^3/uL RBC (4.63-6.08) x10^6/uL Hgb (13.7-17.5) g/dL Hct (40.1-51.0) % MCV (79.0-92.2) fL MCH (25.7-32.2) pg MCHC (32.3-36.5) g/dL RDW (11.6-14.4) % Plt Count (163-337) x10^3/uL MPV (9.4-12.4) fL Gran % (34.0-67.9) % Immature Gran % (Auto) (0.001-0.429) % Nucleat RBC Rel Count (0.00-0.2) % Eos # (Auto) (0.04-0.54) x10^3/uL Immature Gran # (Auto) (0.001-0.031) x10^3u/L Absolute Lymphs (auto) (1.32-3.57) x10^3/uL Absolute Monos (auto) (0.30-0.82) x10^3/uL Absolute Nucleated RBC (0.00-0.012) x10^3u/L Lymphocytes % (21.8-53.1) % Monocytes % (5.3-12.2) % Eosinophils % (0.8-7.0) % Basophils % (0.2-1.2) % Absolute Granulocytes (1.78-5.38) x10^3/uL Basophils # (0.01-0.08) x10^3/uL Sodium (135-145) mmol/L Potassium (3.5-5.1) mmol/L Chloride (98-107) mmol/L Carbon Dioxide (22-30) mmol/L Anion Gap (5-15) MEQ/L BUN (9-20) mg/dL Creatinine (0.66-1.25) mg/dL Estimated GFR ML/MIN Glucose (74-106) mg/dL Lactic Acid 0.7 (0.4-2.0) Calcium (8.4-10.2) mg/dL Total Bilirubin (0.2-1.3) mg/dL AST (17-59) U/L ALT (0-50) U/L Alkaline Phosphatase (38-126) U/L Troponin I 0.038 H* 0.041 H* (0.000-0.033) ng/mL Serum Total Protein (6.3-8.2) g/dL Albumin (3.5-5.0) g/dL Procalcitonin (0.030-0.080) ng/mL Radiology Exams: Radiology Procedures Category Date Time Status CHEST 1 VIEW (PORTABLE) Routine Exams 12/31/23 07:47 Completed UPPER ABDOMEN [US] Urgent Exams 12/30/23 10:41 Completed Assessment/Plan (1) Acute renal failure (ARF) Current Visit: Yes Status: Acute Assessment & Plan: -Nephrology consulted - reviewed chart - continue IVF - follow up with pt on Tuesday as OP -Creat improving 2.07<2.75<3.36 -Monitor renal/lytes daily -Avoid MICHELE/ARB/NSAIDS/diuretics (2) Hyperkalemia Current Visit: Yes Status: Acute Assessment & Plan: -resolved Code(s): E87.5 - HYPERKALEMIA (3) Leukocytosis Current Visit: Yes Status: Acute Assessment & Plan: -Unknown etiology -Repeat UA/CXR -CT abdomen/ US abdomen with no acute findings -UDS -resp viral panel -Zosyn - trend WBC 12/31: -Lactic WNL -CXR showing focal opacities in the lower projection of the left hemithorax and prominent perihilar vascula markings -Continue Zosyn Code(s): D72.829 - ELEVATED WHITE BLOOD CELL COUNT, UNSPECIFIED (4) Rectal bleeding Current Visit: Yes Status: Acute Assessment & Plan: -Hgb at 12.6, down from 16.8 on admission - stable -Surgery consulted - will see as OP -occult stool + -IVF -tele -Protonix -Hold ASA -no longer with rectal bleeding -Monitor H&H closely - transfuse if hgb < 7 Code(s): K62.5 - HEMORRHAGE OF ANUS AND RECTUM (5) Right sided abdominal pain Current Visit: Yes Status: Acute Assessment & Plan: Admitted with sudden onset of right lower quadrant pain, with bright red blood per rectum, high lactate level -CT/ abd US unremarkable -Differentials include ischemic colitis -Continue antibiotics Zosyn -Continue IVF -Continue pain meds -Patient states pain has resolved today 12/31/23 no BRBPR CHEST Pain -continue trop series -repeat EKG -BNP -echo (2) Hyperkalemia Current Visit: Yes Status: Acute Code(s): E87.5 - HYPERKALEMIA (3) Leukocytosis Current Visit: Yes Status: Acute Code(s): D72.829 - ELEVATED WHITE BLOOD CELL COUNT, UNSPECIFIED (4) Rectal bleeding Current Visit: Yes Status: Acute Code(s): K62.5 - HEMORRHAGE OF ANUS AND RECTUM (5) Right sided abdominal pain Current Visit: Yes Status: Acute Code(s): R10.9 - UNSPECIFIED ABDOMINAL PAIN (6) Hypertension Current Visit: No Status: Acute Code(s): I10 - ESSENTIAL (PRIMARY) HYPERTENSION (7) Chest pain Current Visit: Yes Status: Acute Code(s): R07.9 - CHEST PAIN, UNSPECIFIED
[2024-01-01 05:35] LABS: Hematocrit 37.1 % (40.1-51.0); Hemoglobin 12.2 g/dL (13.7-17.5); Mean Corpuscular Hemoglobin 30.6 pg (25.7-32.2); Mean Corpuscular Hgb Concent. 32.9 g/dL (32.3-36.5); Mean Platelet Volume 10.2 fL (9.4-12.4); Platelet Count 201 x10^3/uL (163-337); Red Blood Count 3.99 x10^6/uL (4.63-6.08); Red Cell Distribution Width 13.7 % (11.6-14.4); White Blood Count 12.6 x10^3/uL (4.23-9.07)
[2024-01-01 06:45] LABS: ALBUMIN 2.8 g/dL (3.5-5.0); BILIRUBIN,TOTAL 0.4 mg/dL (0.2-1.3); Calcium 8.2 mg/dL (8.4-10.2); Creatinine 1 1.85 mg/dL (0.66-1.25); EST GLOMERULAR FILTRATION RATE 41.7 ML/MIN; Potassium 4.2 mmol/L (3.5-5.1); Total Protein 5.3 g/dL (6.3-8.2)
[2024-01-01 07:33] VITALS: BP 144/87; PULSE 72; RESP 11; TEMP 97.5; O2SAT 96
--- NOTE | 2024-01-01 09:33 | PCM.DS ---
Discharge Summary Date of Admission: 12/30/23 01:10 Date of Discharge: 01/01/24 Admitting Physician: BLUE ALFAOR MD Consults: Consults on Case 12/30/23 07:52 Consult Surgery ROUTINE 12/30/23 10:32 Consult Nephrology ROUTINE Primary Care Provider: [facility] Allergies Allergies No Known Drug Allergies Allergy (Verified 12/29/23 21:27) Hospital Summary - Hospital Course Hospital Course: 58 years old very pleasant male with past medical history significant for coronary artery disease and hypertension came to the ER complaining of sudden onset of right lower quadrant pain radiated across the bellybutton without any nausea vomiting fever chills. Subsequently developed bright red blood through rectum 5-6 episodes since yesterday. He reported never having the symptoms ever before. He underwent colonoscopy 15 years ago but not sure about the finding. In the ER hemodynamically stable. Lab workup was remarkable for high white cell count, acute kidney injury, hyperkalemia and high lactate, CT abdomen pelvis without contrast remained unremarkable, patient was given fluids started on antibiotic and admitted for further care. Surgery consulted on patient - can follow up OP for colonoscopy. No longer having abdominal pain or blood in stool. . WBC downtrending. Creat improving. Abd Us unremarkable. Nephrology consulted and will see patient as OP on Tuesday. Patient did report an incidence of chest pain that lasted about 10 mins . EKG and trops no change since admission. CP resolved. CXR did show opacities and possible bronchitis. Patient has received Zosyn while IP. He also has several infected teeth that I have advised follow up for. Will send home on Augmentin. Discharge Note New Medications: Augmentin Follow Up: PCP/nephrology Latest Assessment & Plan 1) Acute renal failure (ARF) Current Visit: Yes Status: Acute Assessment & Plan: -Nephrology consulted - reviewed chart - continue IVF - follow up with pt on Tuesday as OP -Creat improving 2.07<2.75<3.36 -Monitor renal/lytes daily -Avoid MICHELE/ARB/NSAIDS/diuretics 12/31: -Improving - will follow up with OP with nephrology per recommendations -continue to hold losartan until follow up -continue coreg (2) Hyperkalemia Current Visit: Yes Status: Acute Assessment & Plan: -resolved Code(s): E87.5 - HYPERKALEMIA (3) Leukocytosis Current Visit: Yes Status: Acute Assessment & Plan: -Unknown etiology -Repeat UA/CXR -CT abdomen/ US abdomen with no acute findings -UDS -resp viral panel -Zosyn - trend WBC 12/31: -Lactic WNL -CXR showing focal opacities in the lower projection of the left hemithorax and prominent perihilar vascula markings -Continue Augmentin and follow up with PCP Code(s): D72.829 - ELEVATED WHITE BLOOD CELL COUNT, UNSPECIFIED (4) Rectal bleeding Current Visit: Yes Status: Acute Assessment & Plan: -Hgb at 12.6, down from 16.8 on admission - stable -Surgery consulted - will see as OP -occult stool + -IVF -tele -Protonix -Hold ASA -no longer with rectal bleeding -Monitor H&H closely - transfuse if hgb < 7 Code(s): K62.5 - HEMORRHAGE OF ANUS AND RECTUM (5) Right sided abdominal pain Current Visit: Yes Status: Acute Assessment & Plan: Admitted with sudden onset of right lower quadrant pain, with bright red blood per rectum, high lactate level -CT/ abd US unremarkable -Differentials include ischemic colitis -Continue antibiotics Zosyn -Continue IVF -Continue pain meds -Patient states pain has resolved today 12/31/23 no BRBPR CHEST Pain -Trops downtrending -repeat EKG with no changes -CP resolved I spent 35 minutes [id number] with the patient on the day of discharge performing discharge exam, discussing hospital stay and discharge instructions with patient and caregivers, preparation of discharge records, prescriptions & referral forms and addressing any questions/concerns the patient had as documented above. - Vitals & Intake/Output Vital Signs: Vital Signs Temperature 97.5 F 01/01/24 07:31 Pulse Rate 72 01/01/24 07:31 Respiratory Rate 11 L 01/01/24 07:31 Blood Pressure 144/87 01/01/24 07:31 O2 Sat by Pulse Oximetry 96 01/01/24 07:31 Intake & Output: Intake & Output 12/29/23 12/30/23 12/31/23 01/01/24 11:59 11:59 11:59 11:59 Intake Total 5705 4936 Balance 5726 4936 Weight 73 kg - Lab Result Diagrams: 01/01/24 03:31 01/01/24 03:31 Lab Results-Last 24 Hrs: Lab Results-Last 24 Hours 12/31/23 12/31/23 01/01/24 Range/Units 06:15 22:57 03:31 WBC (4.23-9.07) x10^3/uL RBC (4.63-6.08) x10^6/uL Hgb (13.7-17.5) g/dL Hct (40.1-51.0) % MCV (79.0-92.2) fL MCH (25.7-32.2) pg MCHC (32.3-36.5) g/dL RDW (11.6-14.4) % Plt Count (163-337) x10^3/uL MPV (9.4-12.4) fL Sodium (135-145) mmol/L Potassium (3.5-5.1) mmol/L Chloride (98-107) mmol/L Carbon Dioxide (22-30) mmol/L Anion Gap (5-15) MEQ/L BUN (9-20) mg/dL Creatinine (0.66-1.25) mg/dL Estimated GFR ML/MIN Glucose (74-106) mg/dL Lactic Acid (0.4-2.0) Calcium (8.4-10.2) mg/dL Total Bilirubin (0.2-1.3) mg/dL AST (17-59) U/L ALT (0-50) U/L Alkaline Phosphatase (38-126) U/L Troponin I 0.038 H* 0.041 H* (0.000-0.033) ng/mL Serum Total Protein (6.3-8.2) g/dL Albumin (3.5-5.0) g/dL Procalcitonin 0.460 H (0.030-0.080) ng/mL 01/01/24 01/01/24 01/01/24 Range/Units 03:31 03:31 05:00 WBC 12.6 H (4.23-9.07) x10^3/uL RBC 3.99 L (4.63-6.08) x10^6/uL Hgb 12.2 L (13.7-17.5) g/dL Hct 37.1 L (40.1-51.0) % MCV 93.0 H (79.0-92.2) fL MCH 30.6 (25.7-32.2) pg MCHC 32.9 (32.3-36.5) g/dL RDW 13.7 (11.6-14.4) % Plt Count 201 (163-337) x10^3/uL MPV 10.2 (9.4-12.4) fL Sodium 138 (135-145) mmol/L Potassium 4.2 (3.5-5.1) mmol/L Chloride 114 H (98-107) mmol/L Carbon Dioxide 18 L (22-30) mmol/L Anion Gap 10.0 (5-15) MEQ/L BUN 22 H (9-20) mg/dL Creatinine 1.85 H (0.66-1.25) mg/dL Estimated GFR 41.7 ML/MIN Glucose 91 (74-106) mg/dL Lactic Acid 0.7 (0.4-2.0) Calcium 8.2 L (8.4-10.2) mg/dL Total Bilirubin 0.40 (0.2-1.3) mg/dL AST 23 (17-59) U/L ALT 13 (0-50) U/L Alkaline Phosphatase 67 (38-126) U/L Troponin I (0.000-0.033) ng/mL Serum Total Protein 5.3 L (6.3-8.2) g/dL Albumin 2.8 L (3.5-5.0) g/dL Procalcitonin (0.030-0.080) ng/mL 01/01/24 Range/Units 07:32 WBC (4.23-9.07) x10^3/uL RBC (4.63-6.08) x10^6/uL Hgb (13.7-17.5) g/dL Hct (40.1-51.0) % MCV (79.0-92.2) fL MCH (25.7-32.2) pg MCHC (32.3-36.5) g/dL RDW (11.6-14.4) % Plt Count (163-337) x10^3/uL MPV (9.4-12.4) fL Sodium (135-145) mmol/L Potassium (3.5-5.1) mmol/L Chloride (98-107) mmol/L Carbon Dioxide (22-30) mmol/L Anion Gap (5-15) MEQ/L BUN (9-20) mg/dL Creatinine (0.66-1.25) mg/dL Estimated GFR ML/MIN Glucose (74-106) mg/dL Lactic Acid (0.4-2.0) Calcium (8.4-10.2) mg/dL Total Bilirubin (0.2-1.3) mg/dL AST (17-59) U/L ALT (0-50) U/L Alkaline Phosphatase (38-126) U/L Troponin I 0.036 H* (0.000-0.033) ng/mL Serum Total Protein (6.3-8.2) g/dL Albumin (3.5-5.0) g/dL Procalcitonin (0.030-0.080) ng/mL Micro Results-Entire Visit: Microbiology 12/30/23 02:00 Blood Culture - Preliminary Blood - Radiology Exams Ordered Rad Exams-Entire Visit: Radiology Procedures Category Date Time Status CHEST 1 VIEW (PORTABLE) Routine Exams 12/31/23 07:47 Completed UPPER ABDOMEN [US] Urgent Exams 12/30/23 10:41 Completed - Procedures and Test Procedures and Tests throughout Hospitalization: Therapy Orders & Screens 12/30/23 01:17 Respiratory Therapy Consult ONCE Comment: Reason For Exam: 12/31/23 22:47 EKG STAT Comment: Diagnosis: hyperkalemia, ARF Discharge Exam General Appearance: no apparent distress Neurologic Exam: alert, oriented x 3, cooperative Eye Exam: PERRL Ears, Nose, Throat Exam: normal ENT inspection Neck Exam: normal inspection Respiratory Exam: normal breath sounds, lungs clear Cardiovascular Exam: regular rate/rhythm, normal heart sounds Gastrointestinal/Abdomen Exam: soft, normal bowel sounds Male Genitalia Exam: deferred Rectal Exam: deferred Back Exam: normal inspection Extremity Exam: normal inspection Skin Exam: normal color Final Diagnosis/Problem List - Final Discharge Diagnosis/Problem (1) Acute renal failure (ARF) Current Visit: Yes Status: Acute (2) Hyperkalemia Current Visit: Yes Status: Acute Code(s): E87.5 - HYPERKALEMIA (3) Leukocytosis Current Visit: Yes Status: Acute Code(s): D72.829 - ELEVATED WHITE BLOOD CELL COUNT, UNSPECIFIED (4) Rectal bleeding Current Visit: Yes Status: Acute Code(s): K62.5 - HEMORRHAGE OF ANUS AND RECTUM (5) Right sided abdominal pain Current Visit: Yes Status: Acute Code(s): R10.9 - UNSPECIFIED ABDOMINAL PAIN (6) Hypertension Current Visit: No Status: Acute Code(s): I10 - ESSENTIAL (PRIMARY) HYPERTENSION (7) Chest pain Current Visit: Yes Status: Acute Code(s): R07.9 - CHEST PAIN, UNSPECIFIED - Discharge Disposition: Home, Self-Care Condition: Stable Prescriptions: New Amox Tr/Potass Clav. 875 mg [Augmentin 875-125 Tablet] 875 mg PO BID 10 Days #20 tablet Carvedilol 12.5 mg [Coreg 12.5 mg] 12.5 mg PO BID 30 Days #60 tablet PANTOPRAZOLE 40 mg Tablet [Protonix 40MG Tablet] 40 mg PO QAM 30 Days #30 tab Continue Clopidogrel Bisulfate [Plavix] 75 mg PO DAILY Aspirin [Adult Aspirin Regimen] 81 mg PO DAILY Discontinued Losartan Potassium [Cozaar] 100 mg PO DAILY Follow up with: ERIKA ENCINAS [CONSULTING PHYSICIAN] - 01/02/24 4:50 pm [facility] [Primary Care Provider] -
[2024-01-01] MEDS ORDERED: COREG 12.5 MG PO SCH (10:00)
[2024-01-01] MEDS: PLAVIX Tablet PO SCH (10:24)
[2024-01-01] MEDS: COREG 12.5 MG PO SCH (10:24)
--- NOTE | 2024-01-01 19:51 | CONS ---
HISTORY OF PRESENT ILLNESS: This is a 58-year-old male who presents with rectal bleeding onset the day prior to presentation. The patient states that he started to have right lower quadrant pain and cramping after coming in from working. He states that he noticed that he had hives on his arms and legs at the same time that he had the stomach pain. The patient then developed urgency and had multiple episodes of diarrhea. Patient states that the diarrhea contained a few drops of blood. He states that he went to the bathroom 5 to 6 times and each time there was blood in his stool. He presented to the emergency department, and on presentation, had an elevated white blood cell count. He also had elevated creatinine. Hemoglobin was around 15. Patient did a fecal occult blood study which was positive. We are consulted for a possible GI bleed. Patient states that he has not had any further episodes of bleeding since last night. He is no longer having any abdominal pain. His last colonoscopy was greater than 15 years ago per patient and nurse. Patient states that he is feeling better now, but is concerned about the bleeding. HOME MEDICATIONS: Patient states that he is currently on Plavix as he had a stent placed 1 year ago. REVIEW OF SYSTEMS: Patient denies any chest pain, shortness of breath, fevers, chills, dizziness, weakness, or any other symptoms related to bleeding/anemia. PHYSICAL EXAMINATION: ABDOMEN: Soft, nontender, nondistended. CARDIOVASCULAR: Regular rate and rhythm. RESPIRATORY: Nonlabored respirations, in no acute cardiopulmonary distress, cooperative, answering questions appropriately. ASSESSMENT AND PLAN: In summary, this is a 58-year-old male who presented with possible gastrointestinal bleed. No evidence of further bleeding on either digital rectal exam or noted by the patient. Patient's hemoglobin has been stable, and he has been hemodynamically stable. Patient has not received any blood since presentation. Would recommend the patient get outpatient colonoscopy for now. Surgery, he will follow up with me, Dr. Callie Sorto, at [facility] for further management. Patient will need cardiac clearance and to have his Plavix held prior to colonoscopy as an outpatient. Patient can have a diet from surgical standpoint. No plans for any endoscopy or surgical intervention during this admission as patient is hemodynamically stable and has no further evidence of bleeding. Please have the patient follow up with me in the office upon discharge.
== END 2024-01-01 10:23 | disposition home or self-care (01) ==
LOC: ED 20:35 → MED SURG 12-30 01:10
PROVIDERS: ADMIT Internal Medicine; ATTEND Internal Medicine
DX: N17.9 Acute kidney failure, unspecified (principal); E87.5 Hyperkalemia; I25.10 Atherosclerotic heart disease of native coronary artery without angina pectoris; I10 Essential (primary) hypertension; R10.31 Right lower quadrant pain; D72.829 Elevated white blood cell count, unspecified; K62.5 Hemorrhage of anus and rectum; R07.9 Chest pain, unspecified; F17.200 Nicotine dependence, unspecified, uncomplicated; Z79.899 Other long term (current) drug therapy; Z79.01 Long term (current) use of anticoagulants
CPT/HCPCS: 36000; 36415; 71045; 74176; 76700; 80053; 81001; 82947; 83605; 83690; 84145; 84484; 85025; 85027; 87040; 93005; 93041; 93268; 96360; 96374; 99285; G0328; G0378; Q3014; 82274; J1815; A9270-GY

== ENCOUNTER 2024-06-10 14:28 | Emergency (ER) | payer OTHER ==
[2024-06-10 14:50] VITALS: TEMP 97.2
--- NOTE | 2024-06-10 14:51 | ERPHSYRPT ---
- History of Present Illness Time Seen by Provider: 06/10/24 14:48 Source: patient Exam Limitations: no limitations Physician History: 58-year-old male presents to our ED for evaluation of swelling and pain to right jaw. Swelling associated with trismus. Patient has multiple carious and missing teeth. Swelling is likely a dental abscess. Patient tolerating his oral secretions. Airway patent. No trauma no fever. Pain described as an ache located at the right jaw into the lateral neck area. Overlying soft tissue intact. No signs of cellulitis. at bedside. They voiced no other complaints or concerns at this time. Portions of this note were created with voice recognition technology. There may be grammatical, spelling, punctuation or sound alike errors Timing/Duration: today Severity: moderate Modifying Factors: Improves With: movement Associated Symptoms: denies symptoms Allergies/Adverse Reactions: No Known Drug Allergies Allergy (Verified 06/10/24 14:38) Home Medications: Aspirin [Adult Aspirin Regimen] 81 mg PO DAILY 12/29/23 [History] Clopidogrel Bisulfate [Plavix] 75 mg PO DAILY 12/29/23 [History] Hx Tetanus, Diphtheria Vaccination/Date Given: No Hx Influenza Vaccination/Date Given: No Hx Pneumococcal Vaccination/Date Given: No Travel Risk - Emerging Infectious Disease Are you exhibiting symptoms associated with any current EIDs: Yes Symptoms: Abdominal Pain, Diarrhea - Review of Systems Constitutional: No Symptoms, No Fever, No Chills Eyes: No Symptoms Ears, Nose, & Throat: No Symptoms Respiratory: No Symptoms, No Cough, No Dyspnea Cardiac: No Symptoms, No Chest Pain, No Edema, No Syncope Abdominal/Gastrointestinal: No Symptoms, No Abdominal Pain, No Nausea, No Vomiting, No Diarrhea Genitourinary Symptoms: No Symptoms, No Dysuria Musculoskeletal: No Symptoms, No Back Pain, No Neck Pain Skin: No Symptoms, No Rash Neurological: No Symptoms, No Dizziness, No Focal Weakness, No Sensory Changes Psychological: No Symptoms Endocrine: No Symptoms Hematologic/Lymphatic: No Symptoms Immunological/Allergic: No Symptoms All Other Systems: Reviewed and Negative - Past Medical History Pertinent Past Medical History: Yes Neurological History: No Pertinent History ENT History: No Pertinent History Cardiac History: Coronary Artery Disease, Hypertension, Myocardial Infarction ([place]) Respiratory History: No Pertinent History Endocrine Medical History: No Pertinent History Musculoskeletal History: Arthritis, Degenerative Disk Disease GI Medical History: Irritable Bowel History: No Pertinent History Psycho-Social History: No Pertinent History Male Reproductive Disorders: No Pertinent History Other Medical History: PATIENT SELF REPORTS SPINE STENOSIS WITH HX OF ATTEMPTED INJECTION ~20 YEARS AGO. HOWEVER, HE REPORTS AN ISSUE WITH NEEDLE PLACEMENT DURING PROCEDURE AND WAS SUPPOSED TO RE-SCHEDULE. PATIENT REPORTS HX OF PET SCAN INDICATING "SPOTS ON LUNGS". CKD STAGE3, NSTEMI, PTSD - Past Surgical History Past Surgical History: Yes Neuro Surgical History: No Pertinent History Cardiac: Cardiac Catheterization, Cardiac Stent Respiratory: No Pertinent History Gastrointestinal: No Pertinent History Genitourinary: No Pertinent History Musculoskeletal: Orthopedic Surgery Male Surgical History: No Pertinent History Other Surgical History: LEFT WRIST SURGERY Significant Family History: no pertinent family hx - Social History Smoking Status: Current every day smoker How long have you smoked: 30 years Exposure to second hand smoke: Yes Drug Use: marijuana, methamphetamines Patient Lives Alone: No - Social Determinants of Health Will the patient participate in the screening: Yes Do you worry about a steady place to live?: No In the past 12 months,have you had to go without utilities?: No Transportation Issues: No Has anyone in your support network made you feel unsafe?: No Have you or anyone in your house had to go w/o enough food: No - Nursing Vital Signs Nursing Vital Signs: Initial Vital Signs Blood Pressure 173/106 06/10/24 14:36 Pain Scale Pain Intensity 3 - Physical Exam General Appearance: no apparent distress, alert Eye Exam: PERRL/EOMI, eyes nml inspection Ears, Nose, Throat Exam: normal ENT inspection, TMs normal, pharynx normal, moist mucous membranes Neck Exam: normal inspection, non-tender, supple, full range of motion Respiratory Exam: normal breath sounds, lungs clear, airway intact, No respiratory distress Cardiovascular Exam: regular rate/rhythm, normal heart sounds, normal peripheral pulses Gastrointestinal/Abdomen Exam: soft, normal bowel sounds, No tenderness, No mass Back Exam: normal inspection, normal range of motion, No CVA tenderness, No vertebral tenderness Extremity Exam: normal inspection, normal range of motion, pelvis stable Neurologic Exam: alert, oriented x 3, cooperative, normal mood/affect, sensation nml, No motor deficits Skin Exam: normal color, warm, dry, No rash Lymphatic Exam: No adenopathy SpO2 Interpretation: normal O2 Delivery: Room Air - Course Nursing assessment & vital signs reviewed: Yes - CT Exams Head CT Interpretation: Tele-radiologist Report (Canine space abscess) Ordered Tests: Active Orders 24 hr Category Date Time Status [employer] Technician STAT Care 06/10/24 14:42 Completed IV Insertion STAT Care 06/10/24 14:42 Active Pulse Oximetry (ED) STAT Care 06/10/24 14:42 Active NECK WITH CONTRAST [CT] Stat Exams 06/10/24 16:17 Completed BLOOD CULTURE Stat Lab 06/10/24 15:10 Received CBC W DIFF Stat Lab 06/10/24 14:58 Completed CMP Stat Lab 06/10/24 14:58 Completed Medication Summary Generic Name Dose Route Start Last Admin Trade Name Freq PRN Reason Stop Dose Admin Sodium Chloride 1,000 mls @ 100 mls/hr 06/10/24 14:45 06/10/24 14:57 Sodium Chloride 0.9% 1000 Ml IV 07/10/24 14:44 100 mls/hr .Q10H VAMSHI Administration Clindamycin HCl/Dextrose 900 mg in 50 mls @ 100 mls/hr 06/10/24 17:26 Clindamycin-D5w 900 Mg/50 Ml IV 06/10/24 17:55 ONCALLTOOR ONE Discontinued Medications Generic Name Dose Route Start Last Admin Trade Name Freq PRN Reason Stop Dose Admin Ketorolac Tromethamine 30 mg 06/10/24 14:43 06/10/24 14:57 Ketorolac Tromethamine 30 Mg/Ml Inj IV 06/10/24 14:44 30 mg STAT ONE Administration Ketorolac Tromethamine Confirm 06/10/24 14:54 Ketorolac Tromethamine 30 Mg/Ml Inj Administered 06/10/24 14:55 Dose 30 mg .ROUTE .STK-MED ONE Lab/Rad Data: Laboratory Result Diagrams 06/10/24 14:58 06/10/24 14:58 Laboratory Results 06/10/24 06/10/24 Range/Units 14:58 14:58 WBC 16.0 H (4.23-9.07) x10^3/uL RBC 4.86 (4.63-6.08) x10^6/uL Hgb 14.4 (13.7-17.5) g/dL Hct 42.9 (40.1-51.0) % MCV 88.3 (79.0-92.2) fL MCH 29.6 (25.7-32.2) pg MCHC 33.6 (32.3-36.5) g/dL RDW 13.5 (11.6-14.4) % Plt Count 235 (163-337) x10^3/uL MPV 10.1 (9.4-12.4) fL Gran % 81.7 H (34.0-67.9) % Immature Gran % (Auto) 0.5 H (0.001-0.429) % Nucleat RBC Rel Count 0.0 (0.00-0.2) % Eos # (Auto) 0.05 (0.04-0.54) x10^3/uL Immature Gran # (Auto) 0.08 H (0.001-0.031) x10^3u/L Absolute Lymphs (auto) 1.33 (1.32-3.57) x10^3/uL Absolute Monos (auto) 1.42 H (0.30-0.82) x10^3/uL Absolute Nucleated RBC 0.00 (0.00-0.012) x10^3u/L Lymphocytes % 8.3 L (21.8-53.1) % Monocytes % 8.9 (5.3-12.2) % Eosinophils % 0.3 L (0.8-7.0) % Basophils % 0.3 (0.2-1.2) % Absolute Granulocytes 13.07 H (1.78-5.38) x10^3/uL Basophils # 0.05 (0.01-0.08) x10^3/uL Sodium 136 (135-145) mmol/L Potassium 4.3 (3.5-5.1) mmol/L Chloride 103 (98-107) mmol/L Carbon Dioxide 21 L (22-30) mmol/L Anion Gap 16.7 H (5-15) MEQ/L BUN 22 H (9-20) mg/dL Creatinine 1.86 H (0.66-1.25) mg/dL Estimated GFR 41.4 ML/MIN Glucose 133 H (74-106) mg/dL Calcium 9.5 (8.4-10.2) mg/dL Total Bilirubin 0.90 (0.2-1.3) mg/dL AST 28 (17-59) U/L ALT 19 (0-50) U/L Alkaline Phosphatase 108 (38-126) U/L Serum Total Protein 7.8 (6.3-8.2) g/dL Albumin 4.7 (3.5-5.0) g/dL - Progress Progress: improved Progress Note: 50-year-old male with right jaw swelling. Physical exam reveals swelling of the right jaw and into the submandibular region. Patient has carious dentition throughout. Laboratory workup reveals chronic renal insufficiency. CT scan reveals a right lower jaw canine abscess. Patient received clindamycin antibiotic IV. A prescription for the same forwarded to patient's pharmacy. A prescription for Haynes forwarded to patient's pharmacy. IV fluids infused as patient received contrast dye with chronic renal sufficiency. Notification for further workup. Patient will require to follow-up with a dentist. Patient advised of the need for dental evaluation. Patient understands he will follow- up as discussed. Prescription for antibiotics forwarded to patient's pharmacy. Patient states he is ready for discharge. He voices no other complaints or concerns at this time. Portions of this note were created with voice recognition technology. There may be grammatical, spelling, punctuation or sound alike errors Complexity of problem addressed is moderate acute complicated no critical care time. Complexity of data reviewed and analyzed is moderate. Test ordered test reviewed results analyzed and correlated clinically with history and physical exam. Risk of complication and or risk of morbidity/mortality of patient management is moderate. A prescription for clindamycin and Haynes forwarded to patient's pharmacy. Vital stable. Time spent to discharge patient is approximately 20 minutes. Plan of care established for shared decision making. No social determinants of health present to impede follow-up. Portions of this note were created with voice recognition technology. There may be grammatical, spelling, punctuation or sound alike errors 06/10/24 17:35 Counseled pt/family regarding: lab results, diagnosis, need for follow-up, rad results - Departure Departure Disposition: Home Clinical Impression: Carious teeth, Dental abscess, Leukocytosis, Canine tooth abscess Condition: Stable Critical Care Time: No Referrals: [facility] [Primary Care Provider] - Follow up/PCP as directed Additional Instructions: Discharge/Care Plan FRANCISCO RIVERA was seen on 06/10/24 in the Emergency Room. The patient was counseled regarding Diagnosis,Lab results, Imaging studies, need for follow up and when to return to the Emergency Room. Prescriptions given: Discharge Note I have spoken with the patient and/or caregivers. I have explained the patient's condition, diagnosis and treatment plan based on the information available to me at this time. I have answered the patient's and/or caregiver's questions and addressed any concerns. The patient and/or caregivers have as good understanding of the patient's diagnosis, condition and treatment plan as can be expected at this point. The vital signs have been stable. The patient's condition is stable and appropriate for discharge from the emergency department. The patient will pursue further outpatient evaluation with the primary care physician or other designated or consulting physician as outlined in the discharge instructions. The patient and/or caregivers are agreeable to this plan of care and follow-up instructions have been explained in detail. The patient and/or caregivers have received these instruction. The patient/and or caregivers are aware that any significant change in condition or worsening of symptoms should prompt an immediate return to this or the closest emergency department or call 911. Prescriptions: Hydrocodone/APAP 5/325 [Haynes 5/325 mg] 1 each PO Q6H PRN PRN #10 tablet MDD 4 PRN Reason: Pain Clindamycin HCl 150 mg [Cleocin 150 mg Capsule] 2 cap PO QID 7 Days #56 cap
[2024-06-10] MEDS ORDERED: Sodium Chloride 0.9% 1000 ML 1,000 ML ONE (14:54)
[2024-06-10] MEDS ORDERED: TORAdol 30 mg Injection ONE (14:54)
[2024-06-10] MEDS: TORAdol 30 mg Injection IV ONE (14:57)
[2024-06-10] MEDS: Sodium Chloride 0.9% 1000 ML 1,000 ML IV SCH (14:57)
[2024-06-10 15:19] LABS: Absolute Neutrophil Ct (ANC) 13.07 x10^3/uL (1.78-5.38); BASOPHIL % 0.3 % (0.2-1.2); Basophil (Absolute #) 0.05 x10^3/uL (0.01-0.08); Eosinophil % 0.3 % (0.8-7.0); Eosinophil (Absolute #) 0.05 x10^3/uL (0.04-0.54); Hematocrit 42.9 % (40.1-51.0); Hemoglobin 14.4 g/dL (13.7-17.5); IMMATURE GRAN # 0.08 x10^3u/L (0.001-0.031); IMMATURE GRAN % 0.5 % (0.001-0.429); Lymphocyte (Absolute #) 1.33 x10^3/uL (1.32-3.57); Lymphocytes % 8.3 % (21.8-53.1); Mean Cell Volume 88.3 fL (79.0-92.2); Mean Corpuscular Hemoglobin 29.6 pg (25.7-32.2); Mean Corpuscular Hgb Concent. 33.6 g/dL (32.3-36.5); Mean Platelet Volume 10.1 fL (9.4-12.4); Monocyte (Absolute #) 1.42 x10^3/uL (0.30-0.82); Monocytes % 8.9 % (5.3-12.2); Neutrophil % 81.7 % (34.0-67.9); Platelet Count 235 x10^3/uL (163-337); Red Blood Count 4.86 x10^6/uL (4.63-6.08); Red Cell Distribution Width 13.5 % (11.6-14.4)
[2024-06-10 15:34] LABS: ALBUMIN 4.7 g/dL (3.5-5.0); ANION GAP 16.7 MEQ/L (5-15); BILIRUBIN,TOTAL 0.9 mg/dL (0.2-1.3); Calcium 9.5 mg/dL (8.4-10.2); Creatinine 1 1.86 mg/dL (0.66-1.25); EST GLOMERULAR FILTRATION RATE 41.4 ML/MIN; Potassium 4.3 mmol/L (3.5-5.1); Total Protein 7.8 g/dL (6.3-8.2)
[2024-06-10 16:46] VITALS: PULSE 65; RESP 16
--- NOTE | 2024-06-10 17:16 | XRAY ---
CLINICAL HISTORY: pain COMPARISON: None. TECHNIQUE: CT scan of the neck was performed with the administration of intravenous contrast 60 ml isovue. Sagittal and coronal reconstructions were obtained. One of the following dose reduction techniques was utilized for this exam: Automated exposure control, adjustment of the mA and/or kV according to patient size, and use of iterative reconstruction. FINDINGS: Right lower canine tooth shows small 2 mm lytic area, with an associated 5 mm lytic cavity at its root. Related 2 x 1.5 cm fluid collection, with an enhancing wall is noted on the anterior right jaw, likely representing a small abscess, with peripheral superficial soft tissues stranding. Nasopharynx: Normal size and appearance. No masses or abnormal enhancement. Oropharynx: Normal size and appearance. No masses or abnormal enhancement. Larynx and Hypopharynx: Normal appearance of the laryngeal structures. Vocal cords are normal in appearance and movement. No masses or abnormal enhancement. Thyroid Gland: Normal size and morphology. No nodules or masses. Normal enhancement post-contrast. Salivary Glands: Parotid, submandibular, and sublingual glands are normal in size and appearance. No evidence of sialadenitis or masses. Lymph Nodes: No pathologically enlarged cervical lymph nodes. Normal appearance of the lymph node chains, however, multiple small reactionary lymph nodes in multiple cervical compartments. Vascular Structures: Normal enhancement of the carotid arteries, jugular veins, and other major vessels post-contrast. No evidence of vascular malformations, aneurysms, or thrombosis. Airway: Trachea and main bronchi are patent. No evidence of tracheal or bronchial stenosis or masses. IMPRESSION: 1. Right lower canine tooth shows small 2 mm lytic area, with an associated 5 mm lytic cavity at its root. 2. Related 2 x 1.5 cm fluid collection, with an enhancing wall is noted on the anterior right jaw, likely representing a small abscess, with peripheral superficial soft tissues stranding. 3. Correlate clinically. [facility] was called at Ext#[id number] at 04:08 PM CARD SCRAPER, 06/10/2024, and Nurse Munira, was informed regarding the presence of Significant Medical Findings on this report. Electronically Signed by: Leilani Farias MD. (06/10/2024 17:11:18 EST)
[2024-06-10] MEDS ORDERED: CLINDAMYCIN-D5W 900 MG/50 ML*** 900 MG/50 ML BAG IV ONE (17:35)
[2024-06-10] MEDS: CLINDAMYCIN-D5W 900 MG/50 ML*** 900 MG/50 ML BAG IV ONE (17:37)
[2024-06-10 18:39] VITALS: BP 128/87; O2SAT 97
== END 2024-06-10 18:41 | disposition home or self-care (01) ==
LOC: ED 14:28
DX: K02.9 Dental caries, unspecified (principal); K04.7 Periapical abscess without sinus; D72.829 Elevated white blood cell count, unspecified; R68.84 Jaw pain; I10 Essential (primary) hypertension; Z79.02 Long term (current) use of antithrombotics/antiplatelets; Z79.891 Long term (current) use of opiate analgesic; Z79.899 Other long term (current) drug therapy; Z72.0 Tobacco use
CPT/HCPCS: 36415; 70491; 80053; 85025; 87040; 94760; 96374; 96375; 99284; 99285; J1885